=== PATIENT | female | born 1935 | race Caucasian/White ===

== ENCOUNTER 2017-06-16 16:17 | Inpatient (IN) | payer MEDICARE ==
[2017-06-16 16:40] LABS: Actual Bicarbonate (HCO3a) 36.6 mEq/L (22-26); Base Excess (BEa) 4.6 mEq/L (0 (+/-) 2.5); O2 Tension (PaO2) 98.1 mmHg (80.0-100.0); pH, Arterial 7.15 (7.35-7.45)
[2017-06-16 16:41] LABS: Analyzer IN Cardio ER; Calcium, Ionized 1.3 mmol/L (1.12-1.30); Carboxyhemoglobin (COHb) 2.5 gm% (0.0-3.0); Hemoglobin (Hb) 12.1 g/dL (12.0-16.0); Potassium - ABG Lab 5.3 mmol/L (3.70-5.30); Puncture Site LBA
[2017-06-16] MEDS ORDERED: Propofol 1,000 MG/100 ML VIAL IV ONE (16:57)
[2017-06-16] MEDS ORDERED: Sodium Bicarb 50 MEQ/50 ML Abboject 8.4% SYRINGE ONE (17:04)
[2017-06-16] MEDS ORDERED: Furosemide 40 MG/4 ML VIAL ONE (17:04)
[2017-06-16] MEDS ORDERED: Aspirin 300 MG Suppository ONE ×2 (17:21→17:34)
[2017-06-16 17:25] LABS: #Eosinphils 0.1 thou/uL (0.0-0.7); #Lymphocytes 0.7 thou/uL (1.20-3.40); #Monocytes 0.7 thou/uL (0.11-0.59); #Neutrophils 6.8 thou/uL (1.40-6.50); %Basophils 0.5 % (0.0-1.0); %Eosinophils 1.3 % (0.0-10.0); %Lymphocytes 7.8 % (21.0-51.0); %Monocytes 8.1 % (0.0-10.0); %Neutrophils 82.3 % (42.0-75.0); Hemoglobin 12.1 g/dL (12.0-16.0); Mean Corpuscular HGB CONC 28.4 g/dL (32.0-36.0); Mean Corpuscular Hemoglobin 25.2 pg (27.0-31.0); Mean Corpuscular Volume 88.9 fl (81.0-99.0); Mean Platelet Volume 7.6 fL (7.4-10.4); Platelet Count 229 thou/uL (130-400); RBC Distribution Width 15.3 % (11.5-14.5); Red Blood Cell (RBC) Count 4.79 mill/uL (4.20-5.40); White Blood Cell (WBC) Count 8.3 thou/uL (4.8-10.8)
[2017-06-16 17:27] LABS: CO2 Tension 35.5 mmHg (35.0-45.0); O2 Tension (PaO2) 98.4 mmHg (80.0-100.0); pH, Arterial 7.51 (7.35-7.45)
[2017-06-16 17:28] LABS: Actual Bicarbonate (HCO3a) 27.7 mEq/L (22-26); Analyzer IN Cardio ER; Base Excess (BEa) 4.7 mEq/L (0 (+/-) 2.5); Calcium, Ionized 1.2 mmol/L (1.12-1.30); Carboxyhemoglobin (COHb) 2.4 gm% (0.0-3.0); Hemoglobin (Hb) 12.1 g/dL (12.0-16.0); Potassium - ABG Lab 5.4 mmol/L (3.70-5.30); Puncture Site RBA
[2017-06-16 17:29] LABS: ALV-art Gradient 142.425 (0-20)
[2017-06-16 17:31] LABS: Bilirubin Small (Negative); Blood, Urine Moderate (Negative); Clarity CLOUDY (Clear); Glucose, Urine (Dipstick) Negative (Negative); Leukocyte Trace (Negative); Nitrite Negative (Negative); Protein, Urine (Dipstick) 100 mg/dL (Neg-Trace); Specific Gravity, Urine 1.017 (1.002-1.036)
[2017-06-16 17:34] LABS: Bacteria/HPF None Seen HPF (None Seen); RBC/HPF 21-50 HPF (0-3)
[2017-06-16 17:35] LABS: Pathc Cast-AUWi Flag 21.95 (0-2.49)
[2017-06-16 17:41] LABS: Anisocytosis SLIGHT = 6-15 cells (100X) (0-5/hpf); MDiff Complete? YES; PLT Morphology Comment Appears Adequate; Polychromasia SLIGHT = 2-3 cells (100X) (0-2/hpf)
[2017-06-16 17:46] LABS: Squamous Epithelial 0-3 HPF (0-3); Transitional Epithelial 0-3 HPF (0-3)
[2017-06-16 17:46] LABS: ALT (SGPT) 23 U/L (8-55); AST (SGOT) 32 U/L (5-34); Albumin 3.5 g/dL (3.4-4.8); Alkaline Phosphatase 148 U/L (40-150); Anion Gap 18 mmol/L (10-20); BUN (Urea Nitrogen) 49 mg/dL (9.8-20.1); Bilirubin, Total 0.9 mg/dL (0.2-1.2); Calc. Creatinine Clearance 0 mL/min (70-130); Calcium 9.5 mg/dL (7.8-10.44); Carbon Dioxide 26 mmol/L (23-31); Chloride 95 mmol/L (98-107); Estimated GFR-MDRD 31; Globulin 3.7 g/dL (2.4-3.5); Glucose 80 mg/dL (83-110); Lipase 12 U/L (8-78); Potassium 5.4 mmol/L (3.5-5.1); Protein, Total 7.2 g/dL (6.0-8.3); Sodium 134 mmol/L (136-145)
[2017-06-16 17:51] LABS: Troponin I 0.044 ng/mL (< 0.028)
--- NOTE | 2017-06-16 18:07 | RAD ---
PORTABLE AP CHEST X-RAY: 06/16/17 HISTORY: Dyspnea, CHF exacerbation. History of atrial fibrillation and CHF. Bilateral lower extremity edema. D ecreased oxygen saturation. COMPARISON: 06/16/17. FINDINGS: The patient is rotated which accentuates the cardiac silhouette and mediastinal structures. However, the cardiac silhouette does appear enlarged. Endotracheal tube is noted in place with the tip overlying the T4 vertebral body and above the level of the leni. Nasogastric tube is noted in place which courses into the upper abdomen. The tip of wh ich is not imaged. There is suboptimal evaluation of the right lung base due to prominent patient rotation and the enlar ged cardiac silhouette. However, there is question of increased density at the right lung base. The f indings could be related to pneumonia, pleural effusion, or atelectasis. Followup PA and lateral ches t x-ray is recommended. The increased density suggested on the recent exam that came from [facility] also obtained on 06/16/17 is not visualized on this exam, some of which is likely related to p ositioning and overlying soft tissue density on the prior study. No other interval change. IMPRESSION: 1. Suboptimal examination due to patient rotation which limits evaluation of the right lung base . However, as noted on the prior exam, there does appear to be increased density at the right lung ba se which could again be related to pleural fluid, pneumonia, aspiration pneumonitis and/or atelectasi s. Followup evaluation is recommended. 2. Endotracheal tube and nasogastric tube noted in place. POS: [facility]
[2017-06-16] MEDS ORDERED: DISCONTINUE PREVIOUS NARCOTIC PAIN MEDICATIONS AND BENZODIAZEPINES FS SCH (19:59)
[2017-06-16] MEDS ORDERED: Fentanyl BOLUS 250 ML IVPB PRN (19:59)
[2017-06-16] MEDS ORDERED: Propofol 1,000 MG/100 ML VIAL IV PRN (19:59)
[2017-06-16] MEDS ORDERED: Propofol BOLUS 1,000 MG/100 ML VIAL IV PRN (19:59)
[2017-06-16] MEDS ORDERED: Morphine 4 MG/ML VIAL SLOW IVP PRN (19:59)
[2017-06-16] MEDS ORDERED: Ondansetron ODT 4 MG TAB PO PRN (20:26)
[2017-06-16] MEDS ORDERED: Ventilator Sedation Protocol 1 EACH FS SCH (20:26)
[2017-06-16] MEDS ORDERED: Furosemide 40 MG/4 ML VIAL SLOW IVP SCH ×2 (20:26→20:45)
[2017-06-16] MEDS ORDERED: Acetaminophen 650 MG Suppository PR PRN (20:26)
[2017-06-16] MEDS ORDERED: Lorazepam 2 MG/ML VIAL SLOW IVP PRN (20:26)
[2017-06-16] MEDS ORDERED: cloNIDine 0.1 MG TAB PO PRN (20:26)
[2017-06-16] MEDS ORDERED: CCU Electrolyte Replacement 1 EACH FS SCH (20:26)
[2017-06-16] MEDS ORDERED: hydrALAZINE 20 MG/ML VIAL SLOW IVP PRN (20:26)
[2017-06-16] MEDS ORDERED: Ondansetron PF 4 MG/2 ML Vial IVP PRN (20:26)
[2017-06-16] MEDS: fentaNYL Citrate/PF 2,000 MCG in Sodium Chloride 0.9% 60 ML IV SCH (20:32)
[2017-06-16] MEDS ORDERED: Potassium Phosphate 15 MMOL in Sodium Chloride 0.9% 250 ML 250 ML IV PRN (20:43)
[2017-06-16] MEDS ORDERED: Magnesium Oxide 400 MG TAB PO PRN ×2 (20:43)
[2017-06-16] MEDS ORDERED: CCU ELECTROLYTE REPLACEMENT PROTOCOL FS PRN (20:43)
[2017-06-16] MEDS ORDERED: Magnesium 2 GM/NS 0.9% 100 ML 2 GM in Premix Bag 1 BAG IVPB PRN (20:43)
[2017-06-16] MEDS ORDERED: Potassium Phosphate 9 MMOL in Sodium Chloride 0.9% 100 ML IVPB PRN (20:43)
[2017-06-16] MEDS ORDERED: Potassium Chloride 20 MEQ TAB PO PRN (20:43)
[2017-06-16] MEDS ORDERED: Potassium Chloride 40 MEQ in Premix Bag 1 BAG IVPB PRN (20:43)
[2017-06-16] MEDS ORDERED: Potassium Phosphate 12 MMOL in Sodium Chloride 0.9% 250 ML 250 ML IV PRN (20:43)
[2017-06-16] MEDS ORDERED: Potassium Chloride 40 MEQ in Sodium Chloride 0.9% 250 ML 250 ML IVPB PRN (20:43)
[2017-06-16] MEDS: Vancomycin HCl 1 GM in Premix Bag 1 BAG IVPB SCH (21:01)
--- NOTE | 2017-06-16 21:55 | HP ---
DATE OF ADMISSION: 06/16/2017 PRIMARY CARE PROVIDER: Faith Perez M.D. CHIEF COMPLAINT: Shortness of breath and altered mentation. HISTORY OF PRESENT ILLNESS: This is an 82-year-old female who was initially admitted to [facility] after presenting with shortness of breath, fatigue, and CHF exacerbation on . The patient apparently was admitted under Dr. Perez's service and treated for congestiv e heart failure. The patient received IV Lasix 40 mg q.12 hours and was placed on a fluid restrictio n of 1500 mL daily. According to the patient's family members at the bedside, the patient became inc reasingly confused, somnolent, and was unable to follow any specific commands. The daughter reports increasing lower extremity swelling and a 40-pound weight gain over approximate 3-week history leadin g up to the admission to [facility] on 06/13/2017. The daughter reports the patient does not take care of herself, but has been caring for her ailing spouse over the same time frame. The patient reji arently had been taking Lasix twice a day up to 3 times a day with no specific improvement in swellin g and increasing fatigue, decreased exercise and activity tolerance with the need to take multiple br eaks while doing chores and assisting her spouse. The patient's history is significant for atrial fi brillation as well as prior congestive heart failure diagnosis with last 2D transthoracic echocardiog igor in 08/2016 showing ejection fraction of 50%-55% with suspected diastolic dysfunction. The family is suspicious the patient may have been noncompliant with her medication and dietary regimen. The h istory is obtained exclusively after review of electronic medical record in the emergency room, [facility] with the ER attending, as well as family members including the patient's daughter at the [facility]. In the emergency room, the patient apparently became increasingly somnolent and hypoxic, requiri ng mechanical ventilation after ABG showed a pH of 7.1 and a pCO2 of 108. The patient was placed on SIMV, given oxygen supplementation with repeat pH after mechanical ventilation of 7.51. The patient also received multiple medications in the emergency room including sodium bicarbonate, fentanyl, prop ofol, aspirin, Lasix, etomidate, and rocuronium. No specific history of fever, exposure history, rec ent fall, injury, or head trauma. The patient has been referred to the Hospitalist Service for [facility] er evaluation and admission. PAST MEDICAL HISTORY: 1. Hypertension. 2. Chronic atrial fibrillation, on anticoagulation with Eliquis. 3. Congestive heart failure with preserved ejection fraction of 50%-55%, questionable diastolic dysf unction. 4. History of asthma. 5. Generalized anxiety. PAST SURGICAL HISTORY: 1. Status post hysterectomy. 2. Status post cataract removal. CURRENT MEDICATIONS: Based on previous electronic medical record, 1. Klonopin 0.5 mg p.o. b.i.d. 2. Lasix 40 mg p.o. b.i.d. 3. Lidoderm patch 1 patch transdermally daily. 4. Metoprolol 50 mg p.o. b.i.d. 5. Tramadol 50 mg p.o. b.i.d. ALLERGIES: To HYDROCODONE. FAMILY HISTORY: Positive for hypertension. SOCIAL HISTORY: The patient resides in [place], [place]. No current alcohol, tobacco, or illicit drug use. Cares for her ailing spouse. Ambulates with the use of a rolling walker. REVIEW OF SYSTEMS: Unobtainable as the patient on current mechanical ventilation. PHYSICAL EXAMINATION: VITAL SIGNS: On admission, blood pressure 122/80, pulse 111, respiratory rate 24, temperature 97.7 d egrees Fahrenheit, O2 saturation 98% on 3 liters per minute by nasal cannula. GENERAL APPEARANCE: This is an 82-year-old female, sedate, on current mechanical ventilati on with family at bedside. HEENT: Pupils are equal, round, and reactive to light and accommodation. Extraocular muscles are in tact. No scleral icterus, no conjunctival injection. Nares patent. OP is clear. ET tube in place and secured appropriately. NECK: Supple, no cervical adenopathy, no thyromegaly, no carotid bruits, no JVD appreciated. No men ingeal signs appreciated. CHEST: Diminished breath sounds in the bases with scattered crackles. Mild expiratory wheezing in t he left upper lung field. CARDIOVASCULAR: S1, S2 with distant heart sounds. Irregular rate and rhythm noted. No audible murm ur. ABDOMEN: Obese, soft, nondistended. Bowel sounds are positive in all four quadrants. No palpable m ass; however, landmarks are difficult to palpate due to the patient's body habitus. EXTREMITIES: Pitting edema to the proximal shins bilaterally. Pulses are palpable distally at the d orsalis pedis, posterior tibial, and popliteal arteries bilaterally. Capillary refill is less than 2 seconds. NEUROLOGIC: Sedate, on current mechanical ventilation, and propofol infusion. GENITOURINARY: Umanzor catheter in place with brock urine. PERTINENT LABORATORY AND X-RAY FINDINGS: Sodium 134, potassium 5.4, chloride 95, CO2 of 26, anion ga p of 18, BUN 49, creatinine 1.58 with estimated GFR of 31, glucose 80, and calcium 9.5. LFTs within normal limits. Troponin I 0.044. BNP 1215, previously noted 946 on 06/15/2017. CBC showed a white blood cell count of 8.3, hemoglobin 12, hematocrit 43, platelet count 229 with 82% neutrophils. ABG on admission 06/16/2017 at 1637 showed pH 7.15, pCO2 of 108, pO2 of 98, bicarbonate 37, O2 saturation 96%. Urinalysis dated 06/16/2017 showed positive protein, moderate blood with trace leukocyte gerald ase, 21-50 rbc's per high-power field, and 11-20 wbc's per high-power field. CT of the brain without contrast dated 06/16/2017 showed no acute intracranial process. Portable chest x-ray dated 06/17/19 18 showed suboptimal exam due to the patient rotation. Questionable right lower lung zone density. Endotracheal and nasogastric tube in place. EKG dated 06/16/2017 showed atrial fibrillation with rat es in the [address]-T wave changes noted. ASSESSMENT AND PLAN: 1. Acute hypercapnic respiratory failure. The patient will be admitted to the Critical Care Unit. We will continue mechanical ventilation with synchronized intermittent mechanical ventilation. Kenyatta nue FiO2 of 60% with PEEP of 5, rate of 25, and pressure support of 10. We will consult Pulmonary Cr itical Care Service for further ventilatory management. Suspect multifactorial respiratory failure i ncluding volume overload and pulmonary edema, as well as potential infectious process. See managemen t as outlined below. 2. Acute diastolic congestive heart failure exacerbation. Suspected given a prior history. Continu e Lasix 40 mg IV b.i.d. Check 2D transthoracic echocardiogram for accurate ejection fraction. 3. Acute encephalopathy. Suspect multifactorial including hypercapnia. We will continue supportive management as outlined previously. Assess mental status functioning when the patient extubated. 4. Acute kidney injury. We will avoid nephrotoxic agents and contrast media. Monitor renal functio n. Limit contrast media exposure. Continue Umanzor catheter for accurate inputs and outputs. 5. Hyperkalemia. Continue Lasix 40 mg IV q.12 hours. Serial potassium monitoring. 6. Chronic atrial fibrillation with variable rate. We will continue telemetry monitoring. Resume m etoprolol 50 mg p.o. b.i.d. Consider Cardizem infusion if rapid ventricular response is sustained. 7. Prophylaxis. Sequential compression devices while in bed. Protonix 40 mg IV q. 24 hours. PT ev aluation when extubated. Critical Care Unit sedation protocol. 8. Code status, FULL, confirmed with the patient's daughter. Previously DO NOT RESUSCITATE; however , this was revoked according to family members at the time of evaluation in the emergency room and pr ior to intubation. Surrogate medical decision maker is the patient's daughter. Total critical care time is 50 minutes.
[2017-06-16] MEDS: cefTRIAXone\\ROCEPHIN 2 GM in Sodium Chloride 0.9% 100 ML IVPB SCH (22:08)
[2017-06-16 22:28] LABS: Troponin I 0.041 ng/mL (< 0.028)
[2017-06-17 01:22] LABS: Troponin I 0.042 ng/mL (< 0.028)
[2017-06-17 05:31] LABS: ALT (SGPT) 21 U/L (8-55); AST (SGOT) 28 U/L (5-34); Alkaline Phosphatase 123 U/L (40-150); Anion Gap 18 mmol/L (10-20); BUN (Urea Nitrogen) 55 mg/dL (9.8-20.1); Band 3 % (5-11); Bilirubin, Total 1.2 mg/dL (0.2-1.2); Calc. Creatinine Clearance 52 mL/min (70-130); Calcium 9.1 mg/dL (7.8-10.44); Carbon Dioxide 28 mmol/L (23-31); Chloride 96 mmol/L (98-107); Estimated GFR-MDRD 34; Glucose 68 mg/dL (83-110); Hemoglobin 10.7 g/dL (12.0-16.0); Hypochromia SLIGHT = 6-15 cells (100X) (0-5/hpf); Lymphocytes 5 % (21-51); MDiff Complete? YES; Mean Corpuscular HGB CONC 30.1 g/dL (32.0-36.0); Mean Corpuscular Hemoglobin 25.5 pg (27.0-31.0); Mean Corpuscular Volume 84.9 fl (81.0-99.0); Mean Platelet Volume 8.4 fL (7.4-10.4); Monocytes 10 % (0-10); Neutrophil 82 % (42-75); PLT Morphology Comment Appears Adequate; Platelet Count 237 thou/uL (130-400); Potassium 4.3 mmol/L (3.5-5.1); RBC Distribution Width 15.6 % (11.5-14.5); Red Blood Cell (RBC) Count 4.18 mill/uL (4.20-5.40); Sodium 138 mmol/L (136-145); White Blood Cell (WBC) Count 8.4 thou/uL (4.8-10.8)
[2017-06-17 05:33] LABS: Troponin I 0.058 ng/mL (< 0.028)
[2017-06-17] MEDS: Furosemide 40 MG/4 ML VIAL SLOW IVP SCH ×2 (05:38→13:17)
[2017-06-17 07:10] LABS: CO2 Tension 26.4 mmHg (35.0-45.0); O2 Tension (PaO2) 73.3 mmHg (80.0-100.0); pH, Arterial 7.65 (7.35-7.45)
[2017-06-17 07:11] LABS: Actual Bicarbonate (HCO3a) 28.2 mEq/L (22-26); Base Excess (BEa) 7.7 mEq/L (0 (+/-) 2.5)
[2017-06-17 07:22] LABS: Hematocrit-ABG 38.3 % (36.0-47.0)
[2017-06-17 07:23] LABS: Calcium, Ionized 1.3 mmol/L (1.12-1.30); Carboxyhemoglobin (COHb) 1.8 gm% (0.0-3.0); Hemoglobin (Hb) 10.8 g/dL (12.0-16.0); Puncture Site RBA
[2017-06-17] MEDS: Vancomycin HCl 1 GM in Premix Bag 1 BAG IVPB SCH ×2 (08:13→21:10)
[2017-06-17] MEDS: Pantoprazole 40 MG VIAL IVP SCH (08:15)
[2017-06-17] MEDS: Diltiazem 125 MG in Sodium Chloride 0.9% 100 ML IVPB SCH ×2 (08:40→20:04)
[2017-06-17] MEDS ORDERED: Aspirin 81 mg Enteric Coated Tablet PER TUBE SCH (09:00)
--- NOTE | 2017-06-17 09:46 | RAD ---
SEMIUPRIGHT FRONTAL CHEST RADIOGRAPH: Date: 06/17/17 COMPARISON: 06/16/17. HISTORY: Intubated CCU patient with respiratory failure. FINDINGS: Stable endotracheal tube and nasogastric tube. Dense opacity in the right perihilar region and right lung base suggests nonspecific consolidation/collapse and possible right pleural fluid. There is also pleural and parenchymal opacity in the left base obscuring the left hemidiaphragm and left heart bor nikky. IMPRESSION: No significant interval change. POS: [facility]
--- NOTE | 2017-06-17 10:40 | CON ---
DATE OF CONSULTATION: 06/17/2017 CONSULTING PHYSICIAN: Dr. Ramirez. REASON FOR CONSULTATION: Acute respiratory failure. HISTORY OF PRESENT ILLNESS: This is an 82-year-old female who was apparently an inpatient at [facility]. She has been hospitalized for CHF exacerbation on 06/13. There is a history of 40 pound weight gain over the last 3 weeks. I am not completely sure what happened over at [place]. She was sent over here for increased somnolence and hypoxemia. She was intubated for hypercapnic respiratory failure and placed on mechanical ventilation. PAST MEDICAL HISTORY: 1. Hypertension. 2. Chronic atrial fibrillation. 3. Chronically anticoagulated for atrial fibrillation. 4. Congestive heart failure, which is diastolic. 5. History of asthma. 6. Anxiety. PAST SURGICAL HISTORY: Hysterectomy and cataract surgery. MEDICATIONS PRIOR TO ADMISSION: Klonopin, Lasix, Lidoderm, metoprolol, tramadol. ALLERGIES: HYDROCODONE. FAMILY MEDICAL HISTORY: Remarkable for hypertension. SOCIAL HISTORY: Lives in [place]. Apparently, she does not have any history of alcohol, tobacco or illicit drug use. REVIEW OF SYSTEMS: Unobtainable as the patient is in mechanical ventilation. PHYSICAL EXAMINATION: VITAL SIGNS: Temperature 100.0, pulse 124, blood pressure 96/52. She is currently on a propofol drip 10 mcg per hour, fentanyl drip at 75 mcg per hour. Total intake since yesterday 499, output 1215. GENERAL: She is somnolent, but receiving intravenous sedation. HEENT: Pupils are reactive. Sclerae anicteric. Oropharynx clear. NECK: Without adenopathy, JVD, or bruits. LUNGS: Diminished breath sounds in the bases. CARDIAC: S1, S2 irregularly irregular and tachycardic. ABDOMEN: Soft, obese, nontender, nondistended. EXTREMITIES: No clubbing, cyanosis. She has 4+ edema throughout her legs. LABORATORY DATA: White blood cell count 8.4, hemoglobin 10, hematocrit 35.4, platelet count 237. ABG, pH 7.65, pCO2 of 26, pO2 of 72 that was on SIMV rate 25, tidal volume 500, PEEP 5, pressure support 10, FIO2 70%. Sodium 130, potassium 4.3, chloride 96, CO2 28, BUN 55, creatinine 1.5, glucose 68. BNP 767. X-RAY FINDINGS: Chest x-ray shows bilateral infiltrates, probably a right effusion. The film is tilted to the right. ASSESSMENT: 1. Congestive heart failure. 2. Acute hypoxic and hypercapnic respiratory failure requiring mechanical ventilation. 3. History of hypertension. 4. Gram positive rods on cultures done over in [place]. PLAN: 1. She is not weanable at this time. I have adjusted her mechanical ventilation rate for her developing respiratory alkalosis. 2. Continue diuresis. 3. I will speak with the family when they arrive. 70 minutes time spent on consultation. Of that time, >50% was spent with the patient and/or on the patients unit [facility]
[2017-06-17] MEDS: Lorazepam 2 MG/ML VIAL SLOW IVP PRN ×2 (13:17→17:53)
[2017-06-17] MEDS ORDERED: Digoxin 0.5 MG/2 ML AMP SLOW IVP SCH ×2 (14:00→17:45)
[2017-06-17] MEDS ORDERED: Furosemide 40 MG/4 ML VIAL SLOW IVP SCH (20:00)
[2017-06-17] MEDS ORDERED: Enoxaparin Sodium 40 MG/0.4 ML SYRINGE SC SCH (21:00)
--- NOTE | 2017-06-17 22:10 | CON ---
DATE OF CONSULTATION: 06/17/2017 PRIMARY STEEL POURER: Frederick Esparza M.D. REASON FOR CONSULTATION: Atrial fibrillation with a rapid rate; congestive heart failure, diastolic. HISTORY OF PRESENT ILLNESS: Ms. Ambrose is an 82-year-old woman with history of diastolic heart failure and atrial fibrillation. She was brought to the hospital in [place], where she was found to stone ve positive blood cultures and had respiratory failure, requiring intubation. She is not here intuba javed on the ventilator. PAST MEDICAL HISTORY: 1. Diastolic heart failure. 2. Atrial fibrillation. 3. History of asthma. PAST SURGICAL HISTORY: Hysterectomy and cataract surgery. MEDICATIONS PRIOR TO ADMISSION: Metoprolol, tramadol, Lasix, Klonopin and also anticoagulant. ALLERGIES: HYDROCODONE. REVIEW OF SYSTEMS: Unobtainable. She is on the ventilator. PHYSICAL EXAMINATION: GENERAL: This is an elderly woman, sedated, appears comfortable on the ventilator. VITAL SIGNS: Blood pressure 117/72, pulse 110-120 despite 12 mg of Cardizem per hour and a single do se of digoxin. NECK: Neck veins are normal. Carotid normal upstrokes. LUNGS: Did not hear any wheezing, rales or rhonchi. CARDIAC: Irregularly irregular, somewhat distant. No murmur, rub or gallop. ABDOMEN: Obese, nontender, no hepatosplenomegaly. EXTREMITIES: Warm and dry. No clubbing or cyanosis. There is moderate edema. SKIN: Warm and dry. PSYCHIATRIC: She is sedated. PERTINENT LABORATORY AND X-RAY FINDINGS: The BNP is elevated at 762, creatinine is 1.49, and troponi n 0.058. Blood gas yesterday pH was 7.15 with pCO2 of 108, most recent blood gas pH of 7.65, pCO2 of 26.4 that was this morning. Echocardiogram is technically difficult, but grossly normal left ventri cular function. ASSESSMENT: 1. Diastolic heart failure with worsening. 2. The patient appears to have a gram-negative sepsis, being treated. 3. Respiratory failure, combination of diastolic heart failure and sepsis. PLAN: 1. Continue supportive care. 2. We will continue Cardizem. 3. Give another dose of digoxin. 4. We will begin anticoagulation started relatively low dose and workup as needed.
[2017-06-17] MEDS: cefTRIAXone\\ROCEPHIN 2 GM in Sodium Chloride 0.9% 100 ML IVPB SCH (22:30)
[2017-06-18] MEDS: fentaNYL Citrate/PF 2,000 MCG in Sodium Chloride 0.9% 60 ML IV SCH (03:33)
[2017-06-18] MEDS: Furosemide 40 MG/4 ML VIAL SLOW IVP SCH ×2 (05:27→13:25)
[2017-06-18] MEDS: Diltiazem 125 MG in Sodium Chloride 0.9% 100 ML IVPB SCH ×2 (05:27→16:12)
[2017-06-18 05:28] LABS: #Eosinphils 0.1 thou/uL (0.0-0.7); #Lymphocytes 0.9 thou/uL (1.20-3.40); #Monocytes 0.9 thou/uL (0.11-0.59); #Neutrophils 4.9 thou/uL (1.40-6.50); %Basophils 0.7 % (0.0-1.0); %Eosinophils 0.8 % (0.0-10.0); %Lymphocytes 13.8 % (21.0-51.0); %Monocytes 12.6 % (0.0-10.0); %Neutrophils 72.1 % (42.0-75.0); Hemoglobin 10.5 g/dL (12.0-16.0); Mean Corpuscular HGB CONC 30.6 g/dL (32.0-36.0); Mean Corpuscular Hemoglobin 25.6 pg (27.0-31.0); Mean Corpuscular Volume 83.6 fl (81.0-99.0); Mean Platelet Volume 7.9 fL (7.4-10.4); Platelet Count 221 thou/uL (130-400); RBC Distribution Width 15.6 % (11.5-14.5); Red Blood Cell (RBC) Count 4.09 mill/uL (4.20-5.40); White Blood Cell (WBC) Count 6.8 thou/uL (4.8-10.8)
[2017-06-18 05:37] LABS: Anion Gap 14 mmol/L (10-20); BUN (Urea Nitrogen) 53 mg/dL (9.8-20.1); Calc. Creatinine Clearance 64 mL/min (70-130); Calcium 8.8 mg/dL (7.8-10.44); Carbon Dioxide 34 mmol/L (23-31); Chloride 97 mmol/L (98-107); Estimated GFR-MDRD 43; Glucose 80 mg/dL (83-110); Potassium 3.5 mmol/L (3.5-5.1); Sodium 141 mmol/L (136-145)
--- NOTE | 2017-06-18 07:16 | PDOC.PN ---
- Subjective Encounter Start Date: 06/17/17 Encounter Start Time: 10:45 Subjective: pt intubated - Objective Resuscitation Status: Resuscitation Status FULL:Full Resuscitation Vital Signs & Weight: Vital Signs (12 hours) Temp Pulse Resp BP Pulse Ox 06/18/17 06:00 12 06/18/17 04:00 98.8 F 12 06/18/17 02:33 98 107/58 L 06/18/17 02:00 12 06/18/17 00:00 98.3 F 12 06/17/17 22:27 85 107/56 L 06/17/17 22:00 12 06/17/17 20:00 98 F 106 H 12 100 Weight Weight 3.87 oz Most Recent Monitor Data Heart Rate from ECG 104 NIBP 118/61 NIBP BP-Mean 81 Respiration from ECG 16 SpO2 100 I&O: 06/17/17 06/18/17 06/19/17 06:59 06:59 06:59 Intake Total 499 1066.4 Output Total 1215 2325 Balance -716 -1258.6 Result Diagrams: 06/18/17 04:05 06/18/17 04:05 Additional Labs: Accuchecks 06/17/17 14:12 POC Glucose 92 Phys Exam - Physical Examination Neck: no nodes, no JVD, supple, full ROM Respiratory: no wheezing, no rales, no rhonchi, wheezing present, clear to auscultation bilateral Cardiovascular: irregular tachycardia Gastrointestinal: soft, positive bowel sounds Musculoskeletal: no edema, pulses present, edema present Dx/Plan - Plan 1) Acute hypoxic and hypercapnic resp failure 2) blood cx one bottle positive for gram postive rods 3) Acute diastolic CHF 4) Afib with rvr 5) ruby plan: Pt currenlty intubated, on abx for now. Pt is on cardizam and cardiology has been consulted. Per notes pt was initially admitted at another hosptial and was transferred here due to acute confusion. UA appears normal. CXR unable to visualize lung bases, fluid vs consolidation. will monitor * . Review of Systems - Review of Systems Other: unable to participate - Medications/Allergies Allergies/Adverse Reactions: Allergies Allergy/AdvReac Type Severity Reaction Status Date / Time hydrocodone AdvReac Verified 06/16/17 21:52 Medications: Current Medications Acetaminophen (Tylenol) 650 mg WI Q4H PRN PRN Reason: Headache/Fever or Mild Pain Aspirin (Aspirin Chewable) 81 mg PER TUBE DAILY [facility] Last Admin: 06/17/17 08:15 Dose: 81 mg Clonidine (Catapres) 0.1 mg PO Q4H PRN PRN Reason: Systolic BP > 180 Enoxaparin Sodium (Lovenox) 40 mg SC 0900,2100 [facility] Last Admin: 06/17/17 21:10 Dose: 40 mg Furosemide (Lasix) 40 mg SLOW IVP 0600,1400 [facility] Last Admin: 06/18/17 05:27 Dose: 40 mg Hydralazine HCl (Apresoline) 10 mg SLOW IVP Q4H PRN PRN Reason: Systolic BP > 180 Fentanyl Citrate 2,000 mcg/ (Sodium Chloride) 100 mls @ 0 mls/hr IV INF [facility]; Per Protocol PRN Reason: Protocol Stop: 07/16/17 19:59 Last Admin: 06/18/17 03:33 Dose: 100 mls Fentanyl Citrate (Fentanyl Bolus) 250 mls @ 0 mls/hr IVPB PRN PRN; As Directed PRN Reason: Breakthrough pain/agitation Stop: 07/16/17 19:59 Ceftriaxone Sodium 2 gm/ (Sodium Chloride) 100 mls @ 200 mls/hr IVPB Q24HR [facility] Last Admin: 06/17/17 22:30 Dose: 100 mls Vancomycin HCl 1 gm/ Device 200 mls @ 200 mls/hr IVPB Q12HR [facility] Last Admin: 06/17/17 21:10 Dose: 200 mls Potassium Chloride 40 meq/ (Sodium Chloride) 270 mls @ 135 mls/hr IVPB ASDIR PRN PRN Reason: FOR SERUM K+ 2.5 - 3.5 Potassium Chloride 40 meq/ (Device) 100 mls @ 50 mls/hr IVPB ASDIR PRN PRN Reason: FOR SERUM K+ 2.5 - 3.5 Magnesium Sulfate 1 gm/ Sodium (Chloride) 102 mls @ 102 mls/hr IV PRN PRN PRN Reason: MAG LEVEL 1.4 - 2.0 Magnesium Sulfate 2 gm/ Device 100 mls @ 100 mls/hr IVPB ASDIR PRN PRN Reason: MAGNESIUM < 1.4 Potassium Phosphate 9 mmol/ (Sodium Chloride) 103 mls @ 25.75 mls/hr IVPB ASDIR PRN PRN Reason: Phosphate 1.0-1.8 Potassium Phosphate 12 mmol/ (Sodium Chloride) 254 mls @ 63.5 mls/hr IV ASDIR PRN PRN Reason: Serum phosphate 0.5-0.9 Potassium Phosphate 15 mmol/ (Sodium Chloride) 255 mls @ 63.75 mls/hr IV ASDIR PRN PRN Reason: Serum Phos < 0.5 Diltiazem HCl 125 mg/ Sodium (Chloride) 125 mls @ 5 mls/hr IVPB INF [facility]; 5 MG/ HR PRN Reason: Protocol Last Admin: 06/18/17 05:27 Dose: 125 mls Lorazepam (Ativan) 2 mg SLOW IVP Q1H PRN PRN Reason: Breakthrough agitation Stop: 07/16/17 19:59 Last Admin: 06/17/17 17:53 Dose: 2 mg Lorazepam (Ativan) 1 mg SLOW IVP Q4H PRN PRN Reason: Anxiety/Agitation Magnesium Oxide (Magnesium Oxide) 400 mg PO BIDPRN PRN PRN Reason: FOR SERUM MAG 1.4 - 2.0 Magnesium Oxide (Magnesium Oxide) 800 mg PO PRN PRN PRN Reason: FOR SERUM MAG < 1.4 Miscellaneous Medication (Phos-Nak) 1 pkt PO TIDPRN PRN PRN Reason: FOR PHOS LEVEL 1.0 - 1.8 Miscellaneous Medication (Phos-Nak) 2 pkt PO TIDPRN PRN PRN Reason: FOR PHOS LEVEL 0.5 - 1.0 Morphine Sulfate (Morphine) 2 mg SLOW IVP Q1H PRN PRN Reason: breakthrough pain/agitation Stop: 07/16/17 19:59 Ondansetron HCl (Zofran Odt) 4 mg PO Q6H PRN PRN Reason: Nausea/Vomiting Ondansetron HCl (Zofran) 4 mg IVP Q6H PRN PRN Reason: Nausea/Vomiting Pantoprazole Sodium (Protonix) 40 mg IVP DAILY [facility] Last Admin: 06/17/17 08:15 Dose: 40 mg Potassium Chloride (K-Dur) 40 meq PO ASDIR PRN PRN Reason: FOR SERUM K+ 2.5 - 3.5 Potassium Chloride (Klor-Con) 40 meq PER TUBE ASDIR PRN PRN Reason: FOR SERUM K+ 2.5-3.5 Propofol (Diprivan) 1,000 mg IV INF PRN; Protocol PRN Reason: TO ACHIEVE GOAL RASS Stop: 07/16/17 19:59 Last Admin: 06/17/17 05:44 Dose: 1,000 mg Propofol (Diprivan Bolus) 20 mg IV Q5MIN PRN PRN Reason: BREAKTHROUGH AGITATION Stop: 07/16/17 19:59 Sodium Chloride (Flush - Normal Saline) 10 ml IVF Q12HR [facility] Last Admin: 06/17/17 21:10 Dose: 10 ml Sodium Chloride (Flush - Normal Saline) 10 ml IVF PRN PRN PRN Reason: Saline Flush
[2017-06-18 07:54] LABS: Actual Bicarbonate (HCO3a) 35.9 mEq/L (22-26); Base Excess (BEa) 10.7 mEq/L (0 (+/-) 2.5); CO2 Tension 51.1 mmHg (35.0-45.0); Carboxyhemoglobin (COHb) 1.8 gm% (0.0-3.0); Hemoglobin (Hb) 10.6 g/dL (12.0-16.0); O2 Tension (PaO2) 79.9 mmHg (80.0-100.0); pH, Arterial 7.46 (7.35-7.45)
[2017-06-18 07:55] LABS: ALV-art Gradient 139.425 (0-20); Calcium, Ionized 1.2 mmol/L (1.12-1.30); Potassium - ABG Lab 3.2 mmol/L (3.70-5.30); Puncture Site RR
--- NOTE | 2017-06-18 08:07 | PRG ---
DATE OF SERVICE: 06/18/2017 This is 35 minutes critical care time. The patient is very slow to awaken and is not following commands for me specifically. She will withd raw when stimulated. PHYSICAL EXAMINATION: VITAL SIGNS: Temperature 98.8 with no fever overnight, pulse 104, blood pressure 118/61. 24 hour in take 1066, output 2325. HEENT: Unremarkable. NECK: No JVD. LUNGS: Clear to auscultation. CARDIOVASCULAR: S1, S2 regular. ABDOMEN: Soft, nontender, nondistended. EXTREMITIES: No clubbing, cyanosis, trace ankle and pedal edema. LABORATORY DATA: White blood cell count 6.8, hematocrit 34.2, platelet count 221. Sodium 141, potas sium 3.5, chloride 97, CO2 34, BUN 53, creatinine 1.2, glucose 80. Chest x-ray is grossly rotated. ASSESSMENT: 1. Acute on chronic congestive heart failure. 2. Question of concurrent sepsis. PLAN: 1. Hold sedation to the greatest extent possible. 2. Follow up on today's blood gas. 3. Continue diuresis. 4. Start enteral tube feeds.
--- NOTE | 2017-06-18 08:12 | RAD ---
AP VIEW CHEST: HISTORY: Respiratory failure in an 82-year-old female. FINDINGS: AP view chest was obtained on 06/18/17. Comparison is made to a previous exam from 06/17/17. AP view chest demonstrates nasogastric and endotracheal tubes to be in place. There is a right-sided pleural effusion. Pulmonary vascular congestion is seen. There is also some blunting of the left c ostophrenic angles compatible with a small left-sided pleural effusion. IMPRESSION: Stable AP view chest with pleural effusion and pulmonary vascular congestion. Lines and tubes in goo d position. POS: [facility]
[2017-06-18 08:26] LABS: Vancomycin, Trough 21.6 ug/mL
[2017-06-18] MEDS: Enoxaparin Sodium 120 MG/0.8 ML SYRINGE SC SCH ×2 (08:33→20:50)
[2017-06-18] MEDS: Pantoprazole 40 MG VIAL IVP SCH (08:33)
[2017-06-18] MEDS: Vancomycin HCl 1 GM in Premix Bag 1 BAG IVPB SCH (08:34)
[2017-06-18] MEDS ORDERED: VANCOMYCIN IVPB PRN (13:44)
[2017-06-18] MEDS ORDERED: Digoxin 0.25 MG TAB PO SCH (13:45)
[2017-06-18] MEDS: Lorazepam 2 MG/ML VIAL SLOW IVP PRN (20:50)
[2017-06-18] MEDS: Metoprolol Tartrate 25 MG TAB PO SCH (20:51)
[2017-06-18] MEDS: cefTRIAXone\\ROCEPHIN 2 GM in Sodium Chloride 0.9% 100 ML IVPB SCH (23:14)
[2017-06-19 03:46] LABS: #Eosinphils 0.1 thou/uL (0.0-0.7); #Lymphocytes 0.8 thou/uL (1.20-3.40); #Monocytes 0.9 thou/uL (0.11-0.59); #Neutrophils 5.3 thou/uL (1.40-6.50); %Basophils 0.5 % (0.0-1.0); %Eosinophils 1.9 % (0.0-10.0); %Lymphocytes 11.6 % (21.0-51.0); %Monocytes 12.3 % (0.0-10.0); %Neutrophils 73.6 % (42.0-75.0); Hemoglobin 10.7 g/dL (12.0-16.0); Mean Corpuscular HGB CONC 31.2 g/dL (32.0-36.0); Mean Corpuscular Hemoglobin 26.2 pg (27.0-31.0); Mean Corpuscular Volume 84.2 fl (81.0-99.0); Mean Platelet Volume 7.4 fL (7.4-10.4); Platelet Count 217 thou/uL (130-400); RBC Distribution Width 15.7 % (11.5-14.5); White Blood Cell (WBC) Count 7.2 thou/uL (4.8-10.8)
[2017-06-19 04:03] LABS: BUN (Urea Nitrogen) 39 mg/dL (9.8-20.1); Calc. Creatinine Clearance 92 mL/min (70-130); Estimated GFR-MDRD 65; Glucose 111 mg/dL (83-110)
[2017-06-19 04:14] LABS: Anion Gap 11 mmol/L (10-20); Carbon Dioxide 38 mmol/L (23-31); Chloride 97 mmol/L (98-107); Potassium 3.2 mmol/L (3.5-5.1); Sodium 143 mmol/L (136-145)
[2017-06-19] MEDS: Furosemide 40 MG/4 ML VIAL SLOW IVP SCH ×2 (05:50→13:13)
[2017-06-19 07:22] LABS: Base Excess (BEa) 14.2 mEq/L (0 (+/-) 2.5); Calcium, Ionized 1.2 mmol/L (1.12-1.30); Hematocrit-ABG 36.7 % (36.0-47.0); Hemoglobin (Hb) 10.8 g/dL (12.0-16.0); O2 Tension (PaO2) 79.4 mmHg (80.0-100.0); Potassium - ABG Lab 3.4 mmol/L (3.70-5.30); Puncture Site RRA; pH, Arterial 7.46 (7.35-7.45)
--- NOTE | 2017-06-19 07:44 | PRG ---
DATE OF SERVICE: 06/19/2017 SUBJECTIVE: For the first time, Ms. Ambrose is awake this morning. She can follow some commands, but i s very, very weak. OBJECTIVE: VITAL SIGNS: On exam, her temperature is 98.5; pulse 97; blood pressure 124/72; O2 sat 96%; total in take for 24 hours 1230, output 4330; weight 233 pounds. HEENT: Unremarkable. NECK: No JVD. LUNGS: Clear at the apex, but crackles at the bases. CARDIOVASCULAR: S1 and S2 irregularly irregular, on a Cardizem drip. ABDOMEN: Soft and nontender. EXTREMITIES: No clubbing, cyanosis, or edema. LABORATORY DATA: White blood cell count 7.2, hematocrit 34.5, platelet count 217. ABG pending. Sod ium 143, potassium 3.2, chloride 97, CO2 of 38, BUN 39, creatinine 0.8, glucose 111. Chest x-ray partha ws some clearing except in the left base. ASSESSMENT: 1. Acute respiratory failure, requiring mechanical ventilation. 2. Possible concurrent sepsis. PLAN: She was placed on spontaneous breathing. She required a lot of pressure support. I do not th ink she could be extubated today unless her neuromuscular weakness improves today. Her cultures have been checked. There is nothing growing at 48 hours. Therefore, I think we should stop the vancomyc in. For the time being, we will continue the ceftriaxone. Plan to stop antibiotics after 5-7 days. I will reevaluate her later today for potential for extubation.
--- NOTE | 2017-06-19 08:06 | RAD ---
CHEST ONE VIEW: History: Respiratory failure. Follow up. Comparison: 06-18-17 FINDINGS: Cardiac silhouette is magnified and enlarged. Pulmonary vasculature remains engorged with patchy biba silar infiltrates and pleural fluid that are similar in appearance to the previous exam. Mediastinum is midline. Lines and tubes appear unchanged in position. gambling monitor leads overlie the chest. IMPRESSION: 1. Radiographic findings of CHF are stable compared to the previous exam. POS: [facility]
[2017-06-19] MEDS: Lorazepam 2 MG/ML VIAL SLOW IVP PRN (08:18)
[2017-06-19] MEDS: Digoxin 0.25 MG TAB PO SCH (08:24)
[2017-06-19] MEDS: Pantoprazole 40 MG VIAL IVP SCH (08:24)
[2017-06-19] MEDS: Metoprolol Tartrate 25 MG TAB PO SCH ×2 (08:24→23:29)
[2017-06-19] MEDS: Enoxaparin Sodium 120 MG/0.8 ML SYRINGE SC SCH ×2 (08:25→23:29)
[2017-06-19] MEDS ORDERED: Vancomycin HCl 1.5 GM in Sodium Chloride 0.9% 250 ML 300 ML IVPB SCH (09:00)
[2017-06-19] MEDS: Diltiazem 125 MG in Sodium Chloride 0.9% 100 ML IVPB SCH (09:32)
--- NOTE | 2017-06-19 09:52 | PDOC.PN ---
- Subjective Encounter Start Date: 06/18/17 Encounter Start Time: 10:30 Subjective: pt intubated - Objective Resuscitation Status: Resuscitation Status FULL:Full Resuscitation Vital Signs & Weight: Vital Signs (12 hours) Temp Pulse Resp BP 06/19/17 08:24 107 H 06/19/17 08:00 16 06/19/17 07:29 88 06/19/17 07:00 99.1 F 06/19/17 06:57 84 06/19/17 06:00 21 H 06/19/17 04:00 22 H 06/19/17 02:00 13 06/19/17 01:56 95 131/77 06/19/17 00:00 20 06/18/17 23:00 98.5 F 06/18/17 22:14 65 120/70 06/18/17 22:00 20 Weight Admit Weight 246 lb 14.884 oz Weight 233 lb 11.04 oz Most Recent Monitor Data Heart Rate from ECG 75 NIBP 116/67 NIBP BP-Mean 86 Respiration from ECG 16 SpO2 97 I&O: 06/18/17 06/19/17 06/20/17 06:59 06:59 06:59 Intake Total 1077.4 1230.0 Output Total 2325 4330 1300 Balance -1247.6 -3100.0 -1300 Result Diagrams: 06/19/17 03:30 06/19/17 03:30 Phys Exam - Physical Examination HEENT: PERRLA, moist MMs, sclera anicteric, TM's clear, oral pharynx no lesions , 2+ tonsils Respiratory: clear to auscultation bilateral Cardiovascular: irregular Gastrointestinal: soft, non-tender, no distention, positive bowel sounds Musculoskeletal: edema present Dx/Plan - Plan 1) Acute hypoxic and hypercapnic resp failure 2) blood cx one bottle positive for gram postive rods 3) Acute diastolic CHF 4) Afib with rvr 5) ruby plan: Pt currently intubated, on abx for now. Pt is on cardizam and cardiology has been consulted. Per notes pt was initially admitted at another hosptial and was transferred here due to acute confusion. UA appears normal. CXR unable to visualize lung bases, fluid vs consolidation. will monitor pt off sedation since 7am will montior. Pt did receive digoxin. * . Review of Systems - Review of Systems Other: unable to participate - Medications/Allergies Allergies/Adverse Reactions: Allergies Allergy/AdvReac Type Severity Reaction Status Date / Time hydrocodone AdvReac Verified 06/16/17 21:52 Medications: Current Medications Acetaminophen (Tylenol) 650 mg UT Q4H PRN PRN Reason: Headache/Fever or Mild Pain Clonidine (Catapres) 0.1 mg PO Q4H PRN PRN Reason: Systolic BP > 180 Digoxin (Lanoxin) 0.25 mg PO DAILY [facility] Last Admin: 06/19/17 08:24 Dose: 0.25 mg Enoxaparin Sodium (Lovenox) 110 mg SC 0900,2100 [facility] Last Admin: 06/19/17 08:25 Dose: 110 mg Furosemide (Lasix) 40 mg SLOW IVP 0600,1400 [facility] Last Admin: 06/19/17 05:50 Dose: 40 mg Hydralazine HCl (Apresoline) 10 mg SLOW IVP Q4H PRN PRN Reason: Systolic BP > 180 Fentanyl Citrate 2,000 mcg/ (Sodium Chloride) 100 mls @ 0 mls/hr IV INF [facility]; Per Protocol PRN Reason: Protocol Stop: 07/16/17 19:59 Last Admin: 06/18/17 03:33 Dose: 100 mls Fentanyl Citrate (Fentanyl Bolus) 250 mls @ 0 mls/hr IVPB PRN PRN; As Directed PRN Reason: Breakthrough pain/agitation Stop: 07/16/17 19:59 Ceftriaxone Sodium 2 gm/ (Sodium Chloride) 100 mls @ 200 mls/hr IVPB Q24HR [facility] Last Admin: 06/18/17 23:14 Dose: 100 mls Potassium Chloride 40 meq/ (Sodium Chloride) 270 mls @ 135 mls/hr IVPB ASDIR PRN PRN Reason: FOR SERUM K+ 2.5 - 3.5 Potassium Chloride 40 meq/ (Device) 100 mls @ 50 mls/hr IVPB ASDIR PRN PRN Reason: FOR SERUM K+ 2.5 - 3.5 Magnesium Sulfate 1 gm/ Sodium (Chloride) 102 mls @ 102 mls/hr IV PRN PRN PRN Reason: MAG LEVEL 1.4 - 2.0 Magnesium Sulfate 2 gm/ Device 100 mls @ 100 mls/hr IVPB ASDIR PRN PRN Reason: MAGNESIUM < 1.4 Potassium Phosphate 9 mmol/ (Sodium Chloride) 103 mls @ 25.75 mls/hr IVPB ASDIR PRN PRN Reason: Phosphate 1.0-1.8 Potassium Phosphate 12 mmol/ (Sodium Chloride) 254 mls @ 63.5 mls/hr IV ASDIR PRN PRN Reason: Serum phosphate 0.5-0.9 Potassium Phosphate 15 mmol/ (Sodium Chloride) 255 mls @ 63.75 mls/hr IV ASDIR PRN PRN Reason: Serum Phos < 0.5 Lorazepam (Ativan) 2 mg SLOW IVP Q1H PRN PRN Reason: Breakthrough agitation Stop: 07/16/17 19:59 Last Admin: 06/19/17 08:18 Dose: 2 mg Lorazepam (Ativan) 1 mg SLOW IVP Q4H PRN PRN Reason: Anxiety/Agitation Magnesium Oxide (Magnesium Oxide) 400 mg PO BIDPRN PRN PRN Reason: FOR SERUM MAG 1.4 - 2.0 Magnesium Oxide (Magnesium Oxide) 800 mg PO PRN PRN PRN Reason: FOR SERUM MAG < 1.4 Metoprolol Tartrate (Lopressor) 25 mg PO BID [facility] Last Admin: 06/19/17 08:24 Dose: 25 mg Metoprolol Tartrate (Lopressor) 5 mg IVP Q6H PRN PRN Reason: HR > 110 Miscellaneous Medication (Phos-Nak) 1 pkt PO TIDPRN PRN PRN Reason: FOR PHOS LEVEL 1.0 - 1.8 Miscellaneous Medication (Phos-Nak) 2 pkt PO TIDPRN PRN PRN Reason: FOR PHOS LEVEL 0.5 - 1.0 Miscellaneous Medication (Pharmacy To Dose) 0 each IVPB PRN PRN PRN Reason: VANCOMYCIN Morphine Sulfate (Morphine) 2 mg SLOW IVP Q1H PRN PRN Reason: breakthrough pain/agitation Stop: 07/16/17 19:59 Ondansetron HCl (Zofran Odt) 4 mg PO Q6H PRN PRN Reason: Nausea/Vomiting Ondansetron HCl (Zofran) 4 mg IVP Q6H PRN PRN Reason: Nausea/Vomiting Pantoprazole Sodium (Protonix) 40 mg PER TUBE DAILY [facility] Potassium Chloride (K-Dur) 40 meq PO ASDIR PRN PRN Reason: FOR SERUM K+ 2.5 - 3.5 Potassium Chloride (Klor-Con) 40 meq PER TUBE ASDIR PRN PRN Reason: FOR SERUM K+ 2.5-3.5 Last Admin: 06/19/17 05:50 Dose: 40 meq Propofol (Diprivan) 1,000 mg IV INF PRN; Protocol PRN Reason: TO ACHIEVE GOAL RASS Stop: 07/16/17 19:59 Last Admin: 06/17/17 05:44 Dose: 1,000 mg Propofol (Diprivan Bolus) 20 mg IV Q5MIN PRN PRN Reason: BREAKTHROUGH AGITATION Stop: 07/16/17 19:59 Sodium Chloride (Flush - Normal Saline) 10 ml IVF Q12HR [facility] Last Admin: 06/19/17 08:26 Dose: 10 ml Sodium Chloride (Flush - Normal Saline) 10 ml IVF PRN PRN PRN Reason: Saline Flush
[2017-06-19] MEDS ORDERED: Metoprolol Tartrate 5 MG/5 ML VIAL IVP PRN (12:19)
--- NOTE | 2017-06-19 12:40 | PDOC.PN ---
- Subjective Encounter Start Date: 06/19/17 Encounter Start Time: 09:45 Subjective: pt intubated - Objective Resuscitation Status: Resuscitation Status FULL:Full Resuscitation Vital Signs & Weight: Vital Signs (12 hours) Temp Pulse Resp BP Pulse Ox 06/19/17 11:00 98.9 F 06/19/17 10:54 77 06/19/17 10:00 17 06/19/17 08:24 107 H 06/19/17 08:00 99 F 76 17 100 06/19/17 07:29 88 06/19/17 07:00 99.1 F 06/19/17 06:57 84 06/19/17 06:00 21 H 06/19/17 04:00 22 H 06/19/17 02:00 13 06/19/17 01:56 95 131/77 Weight Admit Weight 246 lb 14.884 oz Weight 233 lb 11.04 oz Most Recent Monitor Data Heart Rate from ECG 78 NIBP 110/66 NIBP BP-Mean 82 Respiration from ECG 21 SpO2 100 I&O: 06/18/17 06/19/17 06/20/17 06:59 06:59 06:59 Intake Total 1077.4 1230.0 Output Total 2325 4330 1740 Balance -1247.6 -3100.0 -1740 Result Diagrams: 06/19/17 03:30 06/19/17 03:30 Phys Exam - Physical Examination HEENT: PERRLA, moist MMs, sclera anicteric, TM's clear, oral pharynx no lesions , 2+ tonsils Neck: no nodes, no JVD, supple, full ROM mild rhonchi Cardiovascular: irregular Gastrointestinal: soft, non-tender, no distention, positive bowel sounds Musculoskeletal: edema present pt does follow some commands Dx/Plan - Plan 1) Acute hypoxic and hypercapnic resp failure 2) blood cx one bottle positive for gram postive rods 3) Acute diastolic CHF 4) Afib with rvr 5) ruby plan: Pt currenlty intubated, on abx for now. Pt is on cardizam and cardiology has been consulted. Per notes pt was initially admitted at another hosptial and was transferred here due to acute confusion. UA appears normal. CXR unable to visualize lung bases, fluid vs consolidation. will monitor pt on cpap trials still appears drowsy and weak. cx negative will follow. * . Review of Systems - Review of Systems Other: unable to participate - Medications/Allergies Allergies/Adverse Reactions: Allergies Allergy/AdvReac Type Severity Reaction Status Date / Time hydrocodone AdvReac Verified 06/16/17 21:52 Medications: Current Medications Acetaminophen (Tylenol) 650 mg SC Q4H PRN PRN Reason: Headache/Fever or Mild Pain Clonidine (Catapres) 0.1 mg PO Q4H PRN PRN Reason: Systolic BP > 180 Digoxin (Lanoxin) 0.25 mg PO DAILY [facility] Last Admin: 06/19/17 08:24 Dose: 0.25 mg Enoxaparin Sodium (Lovenox) 110 mg SC 0900,2100 [facility] Last Admin: 06/19/17 08:25 Dose: 110 mg Furosemide (Lasix) 40 mg SLOW IVP 0600,1400 [facility] Last Admin: 06/19/17 05:50 Dose: 40 mg Hydralazine HCl (Apresoline) 10 mg SLOW IVP Q4H PRN PRN Reason: Systolic BP > 180 Fentanyl Citrate 2,000 mcg/ (Sodium Chloride) 100 mls @ 0 mls/hr IV INF [facility]; Per Protocol PRN Reason: Protocol Stop: 07/16/17 19:59 Last Admin: 06/18/17 03:33 Dose: 100 mls Fentanyl Citrate (Fentanyl Bolus) 250 mls @ 0 mls/hr IVPB PRN PRN; As Directed PRN Reason: Breakthrough pain/agitation Stop: 07/16/17 19:59 Ceftriaxone Sodium 2 gm/ (Sodium Chloride) 100 mls @ 200 mls/hr IVPB Q24HR [facility] Last Admin: 06/18/17 23:14 Dose: 100 mls Potassium Chloride 40 meq/ (Sodium Chloride) 270 mls @ 135 mls/hr IVPB ASDIR PRN PRN Reason: FOR SERUM K+ 2.5 - 3.5 Potassium Chloride 40 meq/ (Device) 100 mls @ 50 mls/hr IVPB ASDIR PRN PRN Reason: FOR SERUM K+ 2.5 - 3.5 Magnesium Sulfate 1 gm/ Sodium (Chloride) 102 mls @ 102 mls/hr IV PRN PRN PRN Reason: MAG LEVEL 1.4 - 2.0 Magnesium Sulfate 2 gm/ Device 100 mls @ 100 mls/hr IVPB ASDIR PRN PRN Reason: MAGNESIUM < 1.4 Potassium Phosphate 9 mmol/ (Sodium Chloride) 103 mls @ 25.75 mls/hr IVPB ASDIR PRN PRN Reason: Phosphate 1.0-1.8 Potassium Phosphate 12 mmol/ (Sodium Chloride) 254 mls @ 63.5 mls/hr IV ASDIR PRN PRN Reason: Serum phosphate 0.5-0.9 Potassium Phosphate 15 mmol/ (Sodium Chloride) 255 mls @ 63.75 mls/hr IV ASDIR PRN PRN Reason: Serum Phos < 0.5 Lorazepam (Ativan) 2 mg SLOW IVP Q1H PRN PRN Reason: Breakthrough agitation Stop: 07/16/17 19:59 Last Admin: 06/19/17 08:18 Dose: 2 mg Lorazepam (Ativan) 1 mg SLOW IVP Q4H PRN PRN Reason: Anxiety/Agitation Magnesium Oxide (Magnesium Oxide) 400 mg PO BIDPRN PRN PRN Reason: FOR SERUM MAG 1.4 - 2.0 Magnesium Oxide (Magnesium Oxide) 800 mg PO PRN PRN PRN Reason: FOR SERUM MAG < 1.4 Metoprolol Tartrate (Lopressor) 25 mg PO BID [facility] Last Admin: 06/19/17 08:24 Dose: 25 mg Metoprolol Tartrate (Lopressor) 5 mg IVP Q6H PRN PRN Reason: HR > 110 Miscellaneous Medication (Phos-Nak) 1 pkt PO TIDPRN PRN PRN Reason: FOR PHOS LEVEL 1.0 - 1.8 Miscellaneous Medication (Phos-Nak) 2 pkt PO TIDPRN PRN PRN Reason: FOR PHOS LEVEL 0.5 - 1.0 Miscellaneous Medication (Pharmacy To Dose) 0 each IVPB PRN PRN PRN Reason: VANCOMYCIN Morphine Sulfate (Morphine) 2 mg SLOW IVP Q1H PRN PRN Reason: breakthrough pain/agitation Stop: 07/16/17 19:59 Ondansetron HCl (Zofran Odt) 4 mg PO Q6H PRN PRN Reason: Nausea/Vomiting Ondansetron HCl (Zofran) 4 mg IVP Q6H PRN PRN Reason: Nausea/Vomiting Pantoprazole Sodium (Protonix) 40 mg PER TUBE DAILY [facility] Potassium Chloride (K-Dur) 40 meq PO ASDIR PRN PRN Reason: FOR SERUM K+ 2.5 - 3.5 Potassium Chloride (Klor-Con) 40 meq PER TUBE ASDIR PRN PRN Reason: FOR SERUM K+ 2.5-3.5 Last Admin: 06/19/17 05:50 Dose: 40 meq Propofol (Diprivan) 1,000 mg IV INF PRN; Protocol PRN Reason: TO ACHIEVE GOAL RASS Stop: 07/16/17 19:59 Last Admin: 06/17/17 05:44 Dose: 1,000 mg Propofol (Diprivan Bolus) 20 mg IV Q5MIN PRN PRN Reason: BREAKTHROUGH AGITATION Stop: 07/16/17 19:59 Sodium Chloride (Flush - Normal Saline) 10 ml IVF Q12HR [facility] Last Admin: 06/19/17 08:26 Dose: 10 ml Sodium Chloride (Flush - Normal Saline) 10 ml IVF PRN PRN PRN Reason: Saline Flush
--- NOTE | 2017-06-19 17:23 | CON ---
DATE OF CONSULTATION: 06/19/2017 NEUROLOGY CONSULTATION CONSULTING PHYSICIAN: Dr. Esparza. IMPRESSION: Lethargy of uncertain etiology. PLAN: 1. EEG. 2. CT scan of the brain without contrast. 3. T4 and ammonia level. HOSPITAL COURSE: Ms. Ambrose is an 82-year-old woman who reportedly was independently living prior to h er admission. She came in with shortness of breath and peripheral edema. She was subsequently intub ated and was given diuretics. She was initially quite hypercapnic, but this is improved and is curre ntly running in the 50s. She has not been on any sedation other than a little bit of Ativan last nig ht. She remains limitedly responsive according to the nursing staff. She has been afebrile as well. Metabolic studies were all unremarkable. She has been on Solu-Medrol and was recently switched ove r to prednisone. PAST MEDICAL HISTORY: As per chart. ALLERGIES: HYDROCODONE. MEDICATION: List was reviewed. FAMILY HISTORY: Noncontributory. REVIEW OF SYSTEMS: Not obtainable. PHYSICAL EXAMINATION: GENERAL: She is an overweight, elderly lady on ventilatory support. VITAL SIGNS: Pulse 100, blood pressure 146/89, and saturations 97%. HEENT: Pupils are equal. Conjunctivae clear. Eyes are conjugate. She will open her eyes spontaneo usly to stimulation. She could not get her to follow any other commands. EXTREMITIES: She seems to move all 4 extremities equally well. She responds to touch symmetrically. Her toes were downgoing bilaterally. No abnormal movements were seen. SUMMARY: This is an elderly lady who been hypercapnic, but otherwise no other metabolic etiology has been present to make her lethargic. Pursue further workup to see if there is any other underlying c ause.
--- NOTE | 2017-06-19 20:39 | CT ---
NONCONTRAST HEAD CT 06/19/17 HISTORY: Encephalopathy. Patient has ongoing unresponsiveness. COMPARISON: 06/16/17. TECHNIQUE: Noncontrast head CT is performed from the skull base to skull vertex. FINDINGS: No parenchymal hemorrhage. No extra-axial hematoma. No midline shift. Basilar cisterns are patent. Brain volume is age appropriate. Cortical hurtado-white matter differentiation is preserved. Ventricles and sulci are patent and symmetric. Calvarium is intact. Adequate aeration of the mastoid air cells. Left maxillary sinus disease is again demonstrated. IMPRESSION: No acute intracranial process. No significant interval change. POS: [facility]
[2017-06-19] MEDS: cefTRIAXone\\ROCEPHIN 2 GM in Sodium Chloride 0.9% 100 ML IVPB SCH (23:29)
[2017-06-20] MEDS: Furosemide 40 MG/4 ML VIAL SLOW IVP SCH (06:00)
[2017-06-20 06:17] LABS: #Eosinphils 0.2 thou/uL (0.0-0.7); #Neutrophils 4.7 thou/uL (1.40-6.50); %Basophils 0.1 % (0.0-1.0); %Eosinophils 2.6 % (0.0-10.0); %Lymphocytes 13.9 % (21.0-51.0); %Monocytes 14.7 % (0.0-10.0); %Neutrophils 68.7 % (42.0-75.0); Hemoglobin 10.9 g/dL (12.0-16.0); Mean Corpuscular HGB CONC 29.9 g/dL (32.0-36.0); Mean Corpuscular Hemoglobin 25.8 pg (27.0-31.0); Mean Corpuscular Volume 86.4 fl (81.0-99.0); Mean Platelet Volume 8.2 fL (7.4-10.4); Platelet Count 228 thou/uL (130-400); RBC Distribution Width 16.1 % (11.5-14.5); Red Blood Cell (RBC) Count 4.23 mill/uL (4.20-5.40); White Blood Cell (WBC) Count 6.9 thou/uL (4.8-10.8)
[2017-06-20 06:24] LABS: BUN (Urea Nitrogen) 29 mg/dL (9.8-20.1); Calc. Creatinine Clearance 106 mL/min (70-130); Calcium 9.1 mg/dL (7.8-10.44); Estimated GFR-MDRD 83; Glucose 103 mg/dL (83-110)
[2017-06-20 06:33] LABS: Anion Gap 15 mmol/L (10-20); Carbon Dioxide 39 mmol/L (23-31); Chloride 95 mmol/L (98-107); Potassium 3.4 mmol/L (3.5-5.1); Sodium 146 mmol/L (136-145)
[2017-06-20 06:57] LABS: Actual Bicarbonate (HCO3a) 47.8 mEq/L (22-26); Base Excess (BEa) 20.7 mEq/L (0 (+/-) 2.5); CO2 Tension 67.6 mmHg (35.0-45.0); Calcium, Ionized 1.2 mmol/L (1.12-1.30); Hematocrit-ABG 38.8 % (36.0-47.0); Hemoglobin (Hb) 11.3 g/dL (12.0-16.0); O2 Tension (PaO2) 92.1 mmHg (80.0-100.0); Potassium - ABG Lab 3.1 mmol/L (3.70-5.30); Puncture Site RRA; pH, Arterial 7.46 (7.35-7.45)
--- NOTE | 2017-06-20 07:55 | PRG ---
DATE OF SERVICE: 06/20/2017 A 35 minutes critical care time. SUBJECTIVE: The patient remains intubated on mechanical ventilation. Today, she is more awake, she can actually follow some commands and nod her head appropriately. PHYSICAL EXAMINATION: VITAL SIGNS: Her temperature is 98.4, pulse 99, blood pressure 152/87. A 24-hour intake 886, output 6585. HEENT: Unremarkable. NECK: No JVD. LUNGS: Clear anteriorly. CARDIOVASCULAR: S1, S2, slightly tachycardic. ABDOMEN: Soft, nontender. EXTREMITIES: No edema. LABORATORY DATA: Sodium 146, potassium 3.4, chloride 95, CO2 39, BUN 29, creatinine 0.6, glucose 83. White blood cell count 6.9, hematocrit 36.6, platelet count 228. Blood gas, pH 7.46, pCO2 of 67, p O2 of 92 on SIMV rate 12, tidal volume 400, PEEP 5, pressure support 16, FIO2 40%. ASSESSMENT: 1. Improved encephalopathy. 2. Acute respiratory failure requiring mechanical ventilation. 3. Possible concurrent sepsis. 4. Developing metabolic alkalosis with compensatory respiratory acidosis. PLAN: 1. Stop the Lasix as she is developing a contraction alkalosis and start Diamox. 2. Start cutting down respiratory rate on vent. I do not think she is strong enough to wean. I put her on spontaneous breathing this morning and she pulled very small tidal volumes with a pressure kurtz pport of 16. 3. Minimize sedation as much as possible. 4. Continue enteral tube feeds. 5. Would stop antibiotics after 7 days.
[2017-06-20] MEDS: acetaZOLAMIDE Sodium 500 mg Vial IVP SCH ×2 (08:45→20:25)
[2017-06-20] MEDS: Digoxin 0.25 MG TAB PO SCH (08:46)
[2017-06-20] MEDS: Metoprolol Tartrate 25 MG TAB PO SCH ×2 (08:46→20:25)
[2017-06-20] MEDS: Pantoprazole 40 MG GRANULES PACKET PER TUBE SCH (08:46)
[2017-06-20] MEDS: Enoxaparin Sodium 120 MG/0.8 ML SYRINGE SC SCH ×2 (08:46→20:25)
[2017-06-20] MEDS ORDERED: acetaZOLAMIDE Sodium 500 mg Vial IVP SCH (09:00)
[2017-06-20] MEDS: Sterile Water 10 ML VIAL IVP SCH ×2 (10:54→20:47)
--- NOTE | 2017-06-20 11:36 | PQF ---
CLINICAL DOCUMENTATION IMPROVEMENT CLARIFICATION FORM: ICD-10 Updated PLEASE DO AN ADDENDUM TO THE PROGRESS NOTE WITH ANY DOCUMENTATION UPDATES OR ADDITIONS AND CARRY THROUGH TO DC SUMMARY. THANK YOU. DATE: 06/20/17 ATTN: DR. MCQUEEN Please exercise your independent, professional judgment in responding to the clarification form. Clinical indicators are provided on the bottom of this form for your review Please check appropriate box(s) to clarify if the following diagnosis has been ruled in or ruled out: SEPSIS [ ] Ruled in diagnosis [ ] Continue to treat [ x ] Resolved [ ] Ruled out diagnosis [ ] Cannot rule out diagnosis [ ] Other diagnosis [ ] Unable to determine In addition, please specify: Present on Admission (POA): [ ] Yes [ ] No [ x ] Unable to determine For continuity of documentation, please document condition throughout progress notes and discharge summary. Thank You. CLINICAL INDICATORS - SIGNS / SYMPTOMS / LABS PROGRESS NOTE 06/17: "THE PATIENT APPEARS TO HAVE A GRAM-NEGATIVE SEPSIS" PULMONARY NOTE 06/18: "QUESTION OF CONCURRENT SEPSIS" BANDS 3 PULSE 128 RR 30 RECTAL TEMP 97.6 INCREASED CONFUSION RISKS: TRANSFERRED FROM OUTSIDE FACILITY [facility] URINE + WBCS TREATMENT: IV ROCEPHIN MECHANICAL VENT CRITICAL CARE MONITORING BLOOD AND URINE CULTURES SERIAL LABS (This form is maintained as a part of the permanent medical record) 2015 [employer]. All Rights Reserved AVILA [email or web address] Office: [phone] MARIAH
--- NOTE | 2017-06-20 15:22 | PDOC.PN ---
- Subjective Encounter Start Date: 06/20/17 Encounter Start Time: 11:00 Subjective: pt intubated - Objective Resuscitation Status: Resuscitation Status FULL:Full Resuscitation Vital Signs & Weight: Vital Signs (12 hours) Temp Pulse Resp Pulse Ox 06/20/17 14:00 17 06/20/17 13:04 88 06/20/17 12:00 98.5 F 17 06/20/17 10:24 97 06/20/17 10:00 17 06/20/17 08:46 119 H 06/20/17 08:00 98.9 F 97 17 97 06/20/17 06:40 108 H 06/20/17 06:00 18 06/20/17 04:00 16 Weight Admit Weight 246 lb 14.884 oz Weight 228 lb 2.855 oz Most Recent Monitor Data Heart Rate from ECG 85 NIBP 138/75 NIBP BP-Mean 104 Respiration from ECG 8 SpO2 97 I&O: 06/19/17 06/20/17 06/21/17 06:59 06:59 06:59 Intake Total 1230.0 886 Output Total 4330 6585 3425 Balance -3100.0 -5699 -3425 Result Diagrams: 06/20/17 03:50 06/20/17 03:50 Phys Exam - Physical Examination Neck: no nodes, no JVD, supple, full ROM mild crackels to bases Cardiovascular: RRR, no significant murmur, no rub, gallop, irregular Gastrointestinal: soft, non-tender, no distention, positive bowel sounds Musculoskeletal: no edema, pulses present, edema present more awake on stimulation but now follows Dx/Plan - Plan 1) Acute hypoxic and hypercapnic resp failure 2) Acute diastolic CHF 3) Afib with rvr controlled 4) ruby resolved plan: Pt currenlty intubated, on abx for now. Pt is on cardizam and cardiology has been consulted. Per notes pt was initially admitted at another hosptial and was transferred here due to acute confusion. UA appears normal. CXR unable to visualize lung bases, fluid vs consolidation. will monitor pt on cpap trials still appears drowsy and weak. cx negative will follow. 06/[address] head negative, eeg negative. * . Review of Systems - Review of Systems Other: pt intubated - Medications/Allergies Allergies/Adverse Reactions: Allergies Allergy/AdvReac Type Severity Reaction Status Date / Time hydrocodone AdvReac Verified 06/16/17 21:52 Medications: Current Medications Acetaminophen (Tylenol) 650 mg IA Q4H PRN PRN Reason: Headache/Fever or Mild Pain Acetazolamide Sodium (Diamox) 250 mg IVP Q12HR [facility] Last Admin: 06/20/17 08:45 Dose: 250 mg Clonidine (Catapres) 0.1 mg PO Q4H PRN PRN Reason: Systolic BP > 180 Digoxin (Lanoxin) 0.25 mg PO DAILY [facility] Last Admin: 06/20/17 08:46 Dose: 0.25 mg Enoxaparin Sodium (Lovenox) 110 mg SC 0900,2100 [facility] Last Admin: 06/20/17 08:46 Dose: 110 mg Hydralazine HCl (Apresoline) 10 mg SLOW IVP Q4H PRN PRN Reason: Systolic BP > 180 Fentanyl Citrate 2,000 mcg/ (Sodium Chloride) 100 mls @ 0 mls/hr IV INF [facility]; Per Protocol PRN Reason: Protocol Stop: 07/16/17 19:59 Last Admin: 06/18/17 03:33 Dose: 100 mls Fentanyl Citrate (Fentanyl Bolus) 250 mls @ 0 mls/hr IVPB PRN PRN; As Directed PRN Reason: Breakthrough pain/agitation Stop: 07/16/17 19:59 Ceftriaxone Sodium 2 gm/ (Sodium Chloride) 100 mls @ 200 mls/hr IVPB Q24HR [facility] Last Admin: 06/19/17 23:29 Dose: 100 mls Potassium Chloride 40 meq/ (Sodium Chloride) 270 mls @ 135 mls/hr IVPB ASDIR PRN PRN Reason: FOR SERUM K+ 2.5 - 3.5 Potassium Chloride 40 meq/ (Device) 100 mls @ 50 mls/hr IVPB ASDIR PRN PRN Reason: FOR SERUM K+ 2.5 - 3.5 Magnesium Sulfate 1 gm/ Sodium (Chloride) 102 mls @ 102 mls/hr IV PRN PRN PRN Reason: MAG LEVEL 1.4 - 2.0 Magnesium Sulfate 2 gm/ Device 100 mls @ 100 mls/hr IVPB ASDIR PRN PRN Reason: MAGNESIUM < 1.4 Potassium Phosphate 9 mmol/ (Sodium Chloride) 103 mls @ 25.75 mls/hr IVPB ASDIR PRN PRN Reason: Phosphate 1.0-1.8 Potassium Phosphate 12 mmol/ (Sodium Chloride) 254 mls @ 63.5 mls/hr IV ASDIR PRN PRN Reason: Serum phosphate 0.5-0.9 Potassium Phosphate 15 mmol/ (Sodium Chloride) 255 mls @ 63.75 mls/hr IV ASDIR PRN PRN Reason: Serum Phos < 0.5 Lorazepam (Ativan) 2 mg SLOW IVP Q1H PRN PRN Reason: Breakthrough agitation Stop: 07/16/17 19:59 Last Admin: 06/19/17 08:18 Dose: 2 mg Lorazepam (Ativan) 1 mg SLOW IVP Q4H PRN PRN Reason: Anxiety/Agitation Magnesium Oxide (Magnesium Oxide) 400 mg PO BIDPRN PRN PRN Reason: FOR SERUM MAG 1.4 - 2.0 Magnesium Oxide (Magnesium Oxide) 800 mg PO PRN PRN PRN Reason: FOR SERUM MAG < 1.4 Metoprolol Tartrate (Lopressor) 25 mg PO BID [facility] Last Admin: 06/20/17 08:46 Dose: 25 mg Metoprolol Tartrate (Lopressor) 5 mg IVP Q6H PRN PRN Reason: HR > 110 Last Admin: 06/20/17 08:47 Dose: 5 mg Miscellaneous Medication (Phos-Nak) 1 pkt PO TIDPRN PRN PRN Reason: FOR PHOS LEVEL 1.0 - 1.8 Miscellaneous Medication (Phos-Nak) 2 pkt PO TIDPRN PRN PRN Reason: FOR PHOS LEVEL 0.5 - 1.0 Morphine Sulfate (Morphine) 2 mg SLOW IVP Q1H PRN PRN Reason: breakthrough pain/agitation Stop: 07/16/17 19:59 Ondansetron HCl (Zofran Odt) 4 mg PO Q6H PRN PRN Reason: Nausea/Vomiting Ondansetron HCl (Zofran) 4 mg IVP Q6H PRN PRN Reason: Nausea/Vomiting Pantoprazole Sodium (Protonix) 40 mg PER TUBE DAILY [facility] Last Admin: 06/20/17 08:46 Dose: 40 mg Potassium Chloride (K-Dur) 40 meq PO ASDIR PRN PRN Reason: FOR SERUM K+ 2.5 - 3.5 Potassium Chloride (Klor-Con) 40 meq PER TUBE [facility] PRN PRN Reason: FOR SERUM K+ 2.5-3.5 Last Admin: 06/19/17 05:50 Dose: 40 meq Propofol (Diprivan) 1,000 mg IV INF PRN; Protocol PRN Reason: TO ACHIEVE GOAL RASS Stop: 07/16/17 19:59 Last Admin: 06/17/17 05:44 Dose: 1,000 mg Propofol (Diprivan Bolus) 20 mg IV Q5MIN PRN PRN Reason: BREAKTHROUGH AGITATION Stop: 07/16/17 19:59 Sodium Chloride (Flush - Normal Saline) 10 ml IVF Q12HR [facility] Last Admin: 06/20/17 08:47 Dose: 10 ml Sodium Chloride (Flush - Normal Saline) 10 ml IVF PRN PRN PRN Reason: Saline Flush Sterile Water (Water For Injection) 10 ml IVP Q12HR [facility] Last Admin: 06/20/17 10:54 Dose: Not Given
[2017-06-20] MEDS: cefTRIAXone\\ROCEPHIN 2 GM in Sodium Chloride 0.9% 100 ML IVPB SCH (21:07)
[2017-06-21 05:15] LABS: #Eosinphils 0.2 thou/uL (0.0-0.7); #Lymphocytes 1.2 thou/uL (1.20-3.40); #Monocytes 0.8 thou/uL (0.11-0.59); %Basophils 0.1 % (0.0-1.0); %Eosinophils 3.3 % (0.0-10.0); %Lymphocytes 18.7 % (21.0-51.0); Hemoglobin 10.9 g/dL (12.0-16.0); Mean Corpuscular HGB CONC 29.9 g/dL (32.0-36.0); Mean Corpuscular Hemoglobin 25.7 pg (27.0-31.0); Mean Corpuscular Volume 85.9 fl (81.0-99.0); Mean Platelet Volume 7.8 fL (7.4-10.4); Platelet Count 212 thou/uL (130-400); RBC Distribution Width 16.1 % (11.5-14.5); Red Blood Cell (RBC) Count 4.24 mill/uL (4.20-5.40); White Blood Cell (WBC) Count 6.2 thou/uL (4.8-10.8)
[2017-06-21 05:29] LABS: BUN (Urea Nitrogen) 27 mg/dL (9.8-20.1); Calc. Creatinine Clearance 104 mL/min (70-130); Calcium 9.3 mg/dL (7.8-10.44); Estimated GFR-MDRD 86; Glucose 111 mg/dL (83-110)
[2017-06-21 05:38] LABS: Anion Gap 9 mmol/L (10-20); Carbon Dioxide 39 mmol/L (23-31); Chloride 99 mmol/L (98-107); Potassium 3.2 mmol/L (3.5-5.1); Sodium 144 mmol/L (136-145)
[2017-06-21 07:45] LABS: Actual Bicarbonate (HCO3a) 40.6 mEq/L (22-26); Base Excess (BEa) 13.2 mEq/L (0 (+/-) 2.5); CO2 Tension 69.6 mmHg (35.0-45.0); Carboxyhemoglobin (COHb) 2.1 gm% (0.0-3.0); Hemoglobin (Hb) 10.2 g/dL (12.0-16.0); O2 Tension (PaO2) 127.1 mmHg (80.0-100.0); pH, Arterial 7.38 (7.35-7.45)
[2017-06-21 07:46] LABS: Calcium, Ionized 1.3 mmol/L (1.12-1.30); Potassium - ABG Lab 3.5 mmol/L (3.70-5.30); Puncture Site RRA
--- NOTE | 2017-06-21 08:59 | PRG ---
DATE OF SERVICE: 06/21/2017 A 35 minutes critical care time. SUBJECTIVE: The patient remains intubated on mechanical ventilation. She will wake up and follow co mmands for me. PHYSICAL EXAMINATION: VITAL SIGNS: Temperature is 98.2, pulse 101, blood pressure 162/85. A 24-hour intake 2290, output 6 060. Weight 218 pounds. HEENT: Unremarkable. NECK: No JVD. LUNGS: Fairly clear anteriorly. CARDIOVASCULAR: S1 and S2, irregularly irregular. ABDOMEN: Soft, nontender. EXTREMITIES: No edema. LABORATORY DATA: Sodium 144, potassium 3.2, chloride 99, CO2 39, BUN 27, creatinine 0.6, glucose 111 . White blood cell count 6.2, hematocrit 36.4, platelet count 212, pH 7.38, pCO2 of 70, pO2 127. X-RAY FINDINGS: No x-ray was done today. ASSESSMENT: 1. Acute respiratory failure requiring mechanical ventilation. 2. Complex acid base status with severe metabolic alkalosis and compensatory respiratory acidosis. 3. Possible concurrent sepsis. PLAN: 1. Increase respiratory rate on vent. 2. Continue Diamox. Hopefully, we can get her pCO2 down some and move towards extubation. 3. Continue enteral tube feeds. 4. Discontinue antibiotics after 7 days - she still has a couple more days to go. 5. Decrease enoxaparin, because she is demonstrating some bleeding and her weight need to be adjuste d. Given her age greater than 81, I would rather have her dose to once daily rather than twice a day . We may have to consider decreasing the Lovenox even further if bleeding becomes more of an issue.
[2017-06-21] MEDS ORDERED: Enoxaparin Sodium 100 MG/ML SYRINGE SC SCH ×2 (09:00→21:00)
[2017-06-21] MEDS: acetaZOLAMIDE Sodium 500 mg Vial IVP SCH ×2 (09:27→21:18)
[2017-06-21] MEDS: Digoxin 0.25 MG TAB PO SCH (09:27)
[2017-06-21] MEDS: Metoprolol Tartrate 25 MG TAB PO SCH ×2 (09:28→21:18)
[2017-06-21] MEDS: Pantoprazole 40 MG GRANULES PACKET PER TUBE SCH (09:28)
[2017-06-21] MEDS: Sterile Water 10 ML VIAL IVP SCH ×2 (10:00→21:18)
[2017-06-21] MEDS: Lorazepam 2 MG/ML VIAL SLOW IVP PRN (11:42)
[2017-06-21] MEDS: cefTRIAXone\\ROCEPHIN 2 GM in Sodium Chloride 0.9% 100 ML IVPB SCH (21:18)
--- NOTE | 2017-06-21 21:21 | PDOC.PN ---
- Subjective Encounter Start Date: 06/21/17 Encounter Start Time: 09:45 Subjective: pt intubated - Objective Resuscitation Status: Resuscitation Status FULL:Full Resuscitation Vital Signs & Weight: Vital Signs (12 hours) Temp Pulse Resp BP Pulse Ox 06/21/17 20:00 98.3 F 80 20 98 06/21/17 19:00 98.3 F 06/21/17 18:15 92 109/63 06/21/17 18:00 20 06/21/17 16:00 97.7 F 20 06/21/17 14:24 83 120/77 06/21/17 14:00 20 06/21/17 12:00 100.1 F H 20 06/21/17 10:15 75 134/74 06/21/17 09:27 99 Weight Admit Weight 246 lb 14.884 oz Weight 218 lb 0.595 oz Most Recent Monitor Data Heart Rate from ECG 90 NIBP 164/76 NIBP BP-Mean 125 Respiration from ECG 18 SpO2 97 I&O: 06/20/17 06/21/17 06/22/17 06:59 06:59 06:59 Intake Total 886 2292 856 Output Total 6585 6060 1215 [facility] [place] [phone] Result Diagrams: 06/21/17 04:40 06/21/17 04:40 Phys Exam - Physical Examination Neck: no nodes, no JVD, supple, full ROM mild rhonchi and mild crackles to bases Cardiovascular: RRR, no significant murmur, no rub, gallop, irregular Gastrointestinal: soft, positive bowel sounds Musculoskeletal: edema present mild Dx/Plan - Plan 1) Acute hypoxic and hypercapnic resp failure 2) Acute diastolic CHF 3) Afib with rvr controlled 4) ruby resolved plan: Pt currenlty intubated, on abx for now. Pt is on cardizam and cardiology has been consulted. Per notes pt was initially admitted at another hosptial and was transferred here due to acute confusion. UA appears normal. CXR unable to visualize lung bases, fluid vs consolidation. will monitor pt on cpap trials still appears drowsy and weak. cx negative will follow. 06/[address] head negative, eeg negative. 06/22 moderate amount of blood suctions from ET tube. Lovonox dose adjusted. * . Review of Systems - Review of Systems Other: pt intubated - Medications/Allergies Allergies/Adverse Reactions: Allergies Allergy/AdvReac Type Severity Reaction Status Date / Time hydrocodone AdvReac Verified 06/16/17 21:52 Medications: Current Medications Acetaminophen (Tylenol) 650 mg RI Q4H PRN PRN Reason: Headache/Fever or Mild Pain Acetazolamide Sodium (Diamox) 250 mg IVP Q12HR [facility] Last Admin: 06/21/17 21:18 Dose: 250 mg Clonidine (Catapres) 0.1 mg PO Q4H PRN PRN Reason: Systolic BP > 180 Digoxin (Lanoxin) 0.25 mg PO DAILY [facility] Last Admin: 06/21/17 09:27 Dose: 0.25 mg Hydralazine HCl (Apresoline) 10 mg SLOW IVP Q4H PRN PRN Reason: Systolic BP > 180 Fentanyl Citrate 2,000 mcg/ (Sodium Chloride) 100 mls @ 0 mls/hr IV INF SHAHBAZ; Per Protocol PRN Reason: Protocol Stop: 07/16/17 19:59 Last Admin: 06/18/17 03:33 Dose: 100 mls Fentanyl Citrate (Fentanyl Bolus) 250 mls @ 0 mls/hr IVPB PRN PRN; As Directed PRN Reason: Breakthrough pain/agitation Stop: 07/16/17 19:59 Ceftriaxone Sodium 2 gm/ (Sodium Chloride) 100 mls @ 200 mls/hr IVPB Q24HR [facility] Last Admin: 06/21/17 21:18 Dose: 100 mls Potassium Chloride 40 meq/ (Sodium Chloride) 270 mls @ 135 mls/hr IVPB ASDIR PRN PRN Reason: FOR SERUM K+ 2.5 - 3.5 Potassium Chloride 40 meq/ (Device) 100 mls @ 50 mls/hr IVPB ASDIR PRN PRN Reason: FOR SERUM K+ 2.5 - 3.5 Magnesium Sulfate 1 gm/ Sodium (Chloride) 102 mls @ 102 mls/hr IV PRN PRN PRN Reason: MAG LEVEL 1.4 - 2.0 Magnesium Sulfate 2 gm/ Device 100 mls @ 100 mls/hr IVPB ASDIR PRN PRN Reason: MAGNESIUM < 1.4 Potassium Phosphate 9 mmol/ (Sodium Chloride) 103 mls @ 25.75 mls/hr IVPB ASDIR PRN PRN Reason: Phosphate 1.0-1.8 Potassium Phosphate 12 mmol/ (Sodium Chloride) 254 mls @ 63.5 mls/hr IV ASDIR PRN PRN Reason: Serum phosphate 0.5-0.9 Potassium Phosphate 15 mmol/ (Sodium Chloride) 255 mls @ 63.75 mls/hr IV ASDIR PRN PRN Reason: Serum Phos < 0.5 Lorazepam (Ativan) 2 mg SLOW IVP Q1H PRN PRN Reason: Breakthrough agitation Stop: 07/16/17 19:59 Last Admin: 06/21/17 11:42 Dose: 2 mg Lorazepam (Ativan) 1 mg SLOW IVP Q4H PRN PRN Reason: Anxiety/Agitation Magnesium Oxide (Magnesium Oxide) 400 mg PO BIDPRN PRN PRN Reason: FOR SERUM MAG 1.4 - 2.0 Magnesium Oxide (Magnesium Oxide) 800 mg PO PRN PRN PRN Reason: FOR SERUM MAG < 1.4 Metoprolol Tartrate (Lopressor) 25 mg PO BID [facility] Last Admin: 06/21/17 21:18 Dose: 25 mg Metoprolol Tartrate (Lopressor) 5 mg IVP Q6H PRN PRN Reason: HR > 110 Last Admin: 06/20/17 08:47 Dose: 5 mg Miscellaneous Medication (Phos-Nak) 1 pkt PO TIDPRN PRN PRN Reason: FOR PHOS LEVEL 1.0 - 1.8 Miscellaneous Medication (Phos-Nak) 2 pkt PO TIDPRN PRN PRN Reason: FOR PHOS LEVEL 0.5 - 1.0 Morphine Sulfate (Morphine) 2 mg SLOW IVP Q1H PRN PRN Reason: breakthrough pain/agitation Stop: 07/16/17 19:59 Ondansetron HCl (Zofran Odt) 4 mg PO Q6H PRN PRN Reason: Nausea/Vomiting Ondansetron HCl (Zofran) 4 mg IVP Q6H PRN PRN Reason: Nausea/Vomiting Pantoprazole Sodium (Protonix) 40 mg PER TUBE DAILY [facility] Last Admin: 06/21/17 09:28 Dose: 40 mg Potassium Chloride (K-Dur) 40 meq PO ASDIR PRN PRN Reason: FOR SERUM K+ 2.5 - 3.5 Potassium Chloride (Klor-Con) 40 meq PER TUBE ASDIR PRN PRN Reason: FOR SERUM K+ 2.5-3.5 Last Admin: 06/21/17 05:25 Dose: 40 meq Propofol (Diprivan) 1,000 mg IV INF PRN; Protocol PRN Reason: TO ACHIEVE GOAL RASS Stop: 07/16/17 19:59 Last Admin: 06/17/17 05:44 Dose: 1,000 mg Propofol (Diprivan Bolus) 20 mg IV Q5MIN PRN PRN Reason: BREAKTHROUGH AGITATION Stop: 07/16/17 19:59 Sodium Chloride (Flush - Normal Saline) 10 ml IVF Q12HR [facility] Last Admin: 06/21/17 21:18 Dose: 10 ml Sodium Chloride (Flush - Normal Saline) 10 ml IVF PRN PRN PRN Reason: Saline Flush Sterile Water (Water For Injection) 10 ml IVP Q12HR [facility] Last Admin: 06/21/17 21:18 Dose: 10 ml
[2017-06-22 04:41] LABS: Anion Gap 12 mmol/L (10-20); BUN (Urea Nitrogen) 32 mg/dL (9.8-20.1); Calc. Creatinine Clearance 101 mL/min (70-130); Calcium 9.5 mg/dL (7.8-10.44); Carbon Dioxide 30 mmol/L (23-31); Chloride 105 mmol/L (98-107); Estimated GFR-MDRD 83; Glucose 103 mg/dL (83-110); Potassium 3.5 mmol/L (3.5-5.1); Sodium 143 mmol/L (136-145)
[2017-06-22 04:42] LABS: #Eosinphils 0.2 thou/uL (0.0-0.7); #Lymphocytes 1.2 thou/uL (1.20-3.40); #Monocytes 0.8 thou/uL (0.11-0.59); %Basophils 0.7 % (0.0-1.0); %Eosinophils 3.7 % (0.0-10.0); %Lymphocytes 19.5 % (21.0-51.0); %Neutrophils 63.1 % (42.0-75.0); Hemoglobin 10.5 g/dL (12.0-16.0); Mean Corpuscular Hemoglobin 25.5 pg (27.0-31.0); Mean Platelet Volume 8.4 fL (7.4-10.4); Platelet Count 211 thou/uL (130-400); RBC Distribution Width 16.7 % (11.5-14.5); Red Blood Cell (RBC) Count 4.12 mill/uL (4.20-5.40); White Blood Cell (WBC) Count 6.3 thou/uL (4.8-10.8)
[2017-06-22 07:11] LABS: Actual Bicarbonate (HCO3a) 32.3 mEq/L (22-26); CO2 Tension 44.3 mmHg (35.0-45.0); Calcium, Ionized 1.3 mmol/L (1.12-1.30); Carboxyhemoglobin (COHb) 2.1 gm% (0.0-3.0); Hematocrit-ABG 31.2 % (36.0-47.0); Hemoglobin (Hb) 9.5 g/dL (12.0-16.0); O2 Tension (PaO2) 108.6 mmHg (80.0-100.0); Potassium - ABG Lab 2.9 mmol/L (3.70-5.30); Puncture Site LRA; pH, Arterial 7.48 (7.35-7.45)
[2017-06-22 07:12] LABS: ALV-art Gradient 121.225 (0-20)
[2017-06-22] MEDS: Digoxin 0.25 MG TAB PO SCH (08:15)
[2017-06-22] MEDS: Pantoprazole 40 MG GRANULES PACKET PER TUBE SCH (08:15)
[2017-06-22] MEDS: Metoprolol Tartrate 25 MG TAB PO SCH ×2 (08:15→21:09)
[2017-06-22] MEDS: acetaZOLAMIDE Sodium 500 mg Vial IVP SCH ×2 (08:15→21:09)
[2017-06-22] MEDS: Sterile Water 10 ML VIAL IVP SCH ×2 (08:22→21:09)
--- NOTE | 2017-06-22 08:44 | RAD ---
AP VIEW CHEST: HISTORY: Ventilator-dependent patient. FINDINGS: AP view chest is obtained on . Comparison is made to previous exam from 06/19/17. AP view chest demonstrates nasogastric and endotracheal tubes to be in place. There is blunting of the right costophrenic angle compatible with a right-sided pleural effusion. Ec belkis of the aorta is seen. Some mild pulmonary vascular congestion is seen. IMPRESSION: Right-sided pleural effusion and cardiomegaly. POS: TPC
--- NOTE | 2017-06-22 10:25 | PRG ---
DATE OF SERVICE: 06/22/2017 Thirty-five minutes critical care time. SUBJECTIVE: The patient remains intubated on mechanical ventilation. She is awake, alert, follows c ommands. OBJECTIVE: VITAL SIGNS: On exam, temperature is 99.5 with no fever overnight, pulse 91, blood pressure 131/81. A 24-hour intake 1949 and output 2235. HEENT: Unremarkable. NECK: No JVD. LUNGS: Clear breath sounds. CARDIAC: S1 and S2, regular. ABDOMEN: Soft. EXTREMITIES: No edema. LABORATORY DATA: ABG: PH 7.48, PCO2 of 44, pO2 of 108 on SIMV rate 20, tidal 400, PEEP 5, pressure support 16, FiO2 40%. White blood cell count 6.3, hematocrit 35.1, platelet count 211. Sodium 142,0 00, potassium 3.5, chloride 105, CO2 of 30, BUN 32, creatinine 0.6, glucose 83. Her chest x-ray shows improving lung infiltrates. ASSESSMENT: 1. Acute respiratory failure, requiring mechanical ventilation. 2. Complex acid-based status. She has severe metabolic acidosis with a compensating respiratory aci dosis. With Diamox her alkalosis has improved and her pCO2 has dropped. 3. Neuromuscular weakness. 4. Possible recurrent sepsis. 5. Severe hemoptysis yesterday, on high dose Lovenox. PLAN: 1. The Lovenox was stopped yesterday. If restarted, I would just restart a prophylactic dose tomorr ow. 2. Continue enteral tube feeds. 3. I have decreased her respiratory rate on the vent. I have instructed the respiratory therapist t o start working on her pressure support. I think she can probably be extubated in the next 2-3 days if things go well. 4. Continue antibiotics through 7 days.
[2017-06-22] MEDS: cefTRIAXone\\ROCEPHIN 2 GM in Sodium Chloride 0.9% 100 ML IVPB SCH (21:09)
[2017-06-23 04:09] LABS: #Eosinphils 0.3 thou/uL (0.0-0.7); #Lymphocytes 1.2 thou/uL (1.20-3.40); #Monocytes 0.8 thou/uL (0.11-0.59); #Neutrophils 4.1 thou/uL (1.40-6.50); %Basophils 0.4 % (0.0-1.0); %Eosinophils 4.6 % (0.0-10.0); %Lymphocytes 18.1 % (21.0-51.0); %Monocytes 12.8 % (0.0-10.0); %Neutrophils 64.1 % (42.0-75.0); Hemoglobin 10.3 g/dL (12.0-16.0); Mean Corpuscular HGB CONC 29.6 g/dL (32.0-36.0); Mean Corpuscular Hemoglobin 25.6 pg (27.0-31.0); Mean Corpuscular Volume 86.6 fl (81.0-99.0); Mean Platelet Volume 8.5 fL (7.4-10.4); Platelet Count 203 thou/uL (130-400); RBC Distribution Width 16.8 % (11.5-14.5); Red Blood Cell (RBC) Count 4.01 mill/uL (4.20-5.40); White Blood Cell (WBC) Count 6.4 thou/uL (4.8-10.8)
[2017-06-23 04:22] LABS: Anion Gap 9 mmol/L (10-20); BUN (Urea Nitrogen) 33 mg/dL (9.8-20.1); Calc. Creatinine Clearance 108 mL/min (70-130); Calcium 9.3 mg/dL (7.8-10.44); Carbon Dioxide 28 mmol/L (23-31); Chloride 109 mmol/L (98-107); Estimated GFR-MDRD 89; Glucose 105 mg/dL (83-110); Potassium 3.3 mmol/L (3.5-5.1); Sodium 143 mmol/L (136-145)
[2017-06-23 07:35] LABS: CO2 Tension 48.6 mmHg (35.0-45.0); O2 Tension (PaO2) 99.3 mmHg (80.0-100.0); pH, Arterial 7.41 (7.35-7.45)
[2017-06-23 07:36] LABS: Actual Bicarbonate (HCO3a) 29.8 mEq/L (22-26); Base Excess (BEa) 4.3 mEq/L (0 (+/-) 2.5); Calcium, Ionized 1.3 mmol/L (1.12-1.30); Carboxyhemoglobin (COHb) 2.5 gm% (0.0-3.0); Hematocrit-ABG 34.4 % (36.0-47.0); Hemoglobin (Hb) 10.4 g/dL (12.0-16.0); Potassium - ABG Lab 4.1 mmol/L (3.70-5.30); Puncture Site RRA
[2017-06-23] MEDS: Digoxin 0.25 MG TAB PO SCH (08:30)
[2017-06-23] MEDS: Pantoprazole 40 MG GRANULES PACKET PER TUBE SCH (08:30)
[2017-06-23] MEDS: Metoprolol Tartrate 25 MG TAB PO SCH ×2 (08:30→20:50)
[2017-06-23] MEDS: acetaZOLAMIDE Sodium 500 mg Vial IVP SCH (08:30)
[2017-06-23] MEDS: Sterile Water 10 ML VIAL IVP SCH (08:30)
--- NOTE | 2017-06-23 08:57 | PRG ---
DATE OF SERVICE: 06/23/2017 SERVICE: Pulmonary Medicine. INTERVAL HISTORY: The patient is doing fine from a respiratory standpoint. This morning, I find her awake and alert. She is cooperative. She is breathing comfortably on a spontaneous breathing trial . She denies any chest pain or shortness of breath currently. Otherwise, there has been no interval change to her condition. PHYSICAL EXAMINATION: VITAL SIGNS: Afebrile, pulse 78, blood pressure 110/57, respirations 13, saturation 98% on 31% FIO2 and a PEEP of 5. GENERAL: The patient is awake and alert. No apparent distress. LUNGS: Decent air entry. Crackles are still present. There is no prolonged expiratory phase or whe ezing present. HEART: Normal rate, regular. ABDOMEN: Soft, nontender, nondistended. Bowel sounds are positive. MUSCULOSKELETAL: No cyanosis or clubbing. There is trace pitting in the bilateral lower extremities , which is drastically improved. NEUROLOGIC: Grossly nonfocal. LABORATORY DATA: WBC 6.4, hemoglobin 10.3, platelets 203,000. PH 7.41, pCO2 of 48, pO2 99. Creatin ine 0.64, potassium 3.3, chloride 109, sodium 143. Bicarbonate is currently 28. BUN 33. Urine cult ure and blood culture, unremarkable. IMAGING: Chest x-ray demonstrates right-sided layering pleural effusion. Endotracheal tube remains in decent position, roughly 4 cm above the level of the leni. There is a significant rotation, whi ch obscures much of the right chest. Cardiomegaly is evident on this portable film. ASSESSMENT: 1. Acute hypoxic respiratory failure. 2. Neuromuscular weakness. 3. Acute on chronic diastolic heart failure. 4. Atrial fibrillation with rapid ventricular response, currently rate controlled. PLAN: I will give the patient a spontaneous breathing trial. If she meets criteria at the end of , extubation will be considered. Potassium will be replaced aggressively. We will suspend t he Diamox as the patient's acid base status has nearly returned to normal. I will back off on her La six as well. We will allow for her to reaccumulate fluid in her bloodstream before pushing her furth er. CRITICAL CARE TIME: 30 minutes.
[2017-06-23] MEDS ORDERED: Potassium Chloride 40 MEQ in Sodium Chloride 0.9% 250 ML 250 ML IVPB SCH (09:30)
[2017-06-23] MEDS ORDERED: Potassium Chloride 40 MEQ in Sodium Chloride 0.9% 250 ML 150 ML IVPB SCH (09:30)
[2017-06-23 11:05] LABS: pH, Arterial 7.25 (7.35-7.45)
[2017-06-23 11:06] LABS: Actual Bicarbonate (HCO3a) 31.3 mEq/L (22-26); Base Excess (BEa) 2.4 mEq/L (0 (+/-) 2.5); CO2 Tension 73.1 mmHg (35.0-45.0); Hematocrit-ABG 38.1 % (36.0-47.0); O2 Tension (PaO2) 88.9 mmHg (80.0-100.0)
[2017-06-23 11:07] LABS: ALV-art Gradient 33.625 (0-20); Calcium, Ionized 1.4 mmol/L (1.12-1.30); Carboxyhemoglobin (COHb) 2.5 gm% (0.0-3.0); Hemoglobin (Hb) 11.3 g/dL (12.0-16.0); Potassium - ABG Lab 4.4 mmol/L (3.70-5.30); Puncture Site RRA
[2017-06-23] MEDS: cefTRIAXone\\ROCEPHIN 2 GM in Sodium Chloride 0.9% 100 ML IVPB SCH (20:53)
[2017-06-24 05:30] LABS: Anion Gap 11 mmol/L (10-20); BUN (Urea Nitrogen) 31 mg/dL (9.8-20.1); Calc. Creatinine Clearance 102 mL/min (70-130); Calcium 9.9 mg/dL (7.8-10.44); Carbon Dioxide 27 mmol/L (23-31); Chloride 113 mmol/L (98-107); Estimated GFR-MDRD 84; Glucose 80 mg/dL (83-110); Magnesium 2.2 mg/dL (1.6-2.6); Phosphorus 3.4 mg/dL (2.3-4.7); Sodium 147 mmol/L (136-145)
--- NOTE | 2017-06-24 07:58 | PDOC.PN ---
- Subjective Encounter Start Date: 06/22/17 Encounter Start Time: 13:40 -: non-verbal, old records requested/rev Pt seen and examined, chart reviewed inits entirety, this is my first visit with this patient. Presented with AMS, SOB, acute hypoxemic and hypercapneic reps failure, intubated. On vent, though wide awake. weaning progressing, planning for extuabtion in AM i think No f/c, no n/V/D/C, no CP , no acute events. ROS not obtainable due to intubated status - Objective Resuscitation Status: Resuscitation Status FULL:Full Resuscitation MAR Reviewed: Yes Vital Signs & Weight: Vital Signs (12 hours) Temp Pulse Resp Pulse Ox 06/24/17 07:11 111 H 23 H 96 06/24/17 06:00 98.8 F 06/24/17 03:28 93 25 H 99 06/23/17 23:00 98.7 F 06/23/17 22:40 98 29 H 100 Weight Admit Weight 246 lb 14.884 oz Weight 214 lb 1.102 oz Most Recent Monitor Data Heart Rate from ECG 80 NIBP 90/50 NIBP BP-Mean 67 Respiration from ECG 24 SpO2 97 I&O: 06/23/17 06/24/17 06/25/17 06:59 06:59 06:59 Intake Total 1987 683 Output Total 2400 1500 Balance -413 -817 Result Diagrams: 06/23/17 03:29 06/24/17 05:05 Radiology Reviewed by me: Yes EKG Reviewed by me: Yes Phys Exam - Physical Examination Constitutional: NAD HEENT: PERRLA, moist MMs, sclera anicteric, oral pharynx no lesions oral ETT in place Neck: no nodes, no JVD, supple, full ROM coarse bilaterla breath sounds, post rales Cardiovascular: RRR, no significant murmur 3/6 HSM at apex Gastrointestinal: soft, non-tender, no distention, positive bowel sounds Musculoskeletal: edema present LUE paretic, global severe weakness Lymphatic: no nodes Skin: no rash, normal turgor, cap refill <2 seconds Dx/Plan (1) Acute hypoxemic respiratory failure Code(s): J96.01 - ACUTE RESPIRATORY FAILURE WITH HYPOXIA Status: Acute (2) Acute hypercapnic respiratory failure Code(s): J96.02 - ACUTE RESPIRATORY FAILURE WITH HYPERCAPNIA Status: Acute (3) Acute on chronic diastolic CHF (congestive heart failure) Code(s): I50.33 - ACUTE ON CHRONIC DIASTOLIC (CONGESTIVE) HEART FAILURE Status : Acute (4) Metabolic encephalopathy Code(s): G93.41 - METABOLIC ENCEPHALOPATHY Status: Acute (5) NEEMA (acute kidney injury) Code(s): N17.9 - ACUTE KIDNEY FAILURE, UNSPECIFIED Status: Resolved (6) Atrial fibrillation Code(s): I48.91 - UNSPECIFIED ATRIAL FIBRILLATION Status: Chronic Qualifiers: Atrial fibrillation type: chronic Qualified Code(s): I48.2 - Chronic atrial fibrillation - Plan cont current plan of care, continue antibiotics, PT/OT, respiratory therapy * . wean vent per pulm, appreciate their asistance. continue diuresis
--- NOTE | 2017-06-24 08:05 | PDOC.PN ---
- Subjective Encounter Start Date: 06/23/17 Encounter Start Time: 15:20 -: non-verbal Pt extubated earlier this AM, tolerated CPAP for 2 hours prior. became obtunded , ABG with PCO2 78, placedon BiPAP. poor tidal volume despite pressure 16/7. pt not waking. repeat ABG impending. DIL at bedside, stated pt wouldnot want this, fmaily deciding at present whether to re-intubate or not No overnight events reported ROS not obtainable - Objective Resuscitation Status: Resuscitation Status FULL:Full Resuscitation MAR Reviewed: Yes Vital Signs & Weight: Vital Signs (12 hours) Temp Pulse Resp Pulse Ox 06/24/17 07:11 111 H 23 H 96 06/24/17 06:00 98.8 F 06/24/17 03:28 93 25 H 99 06/23/17 23:00 98.7 F 06/23/17 22:40 98 29 H 100 Weight Admit Weight 246 lb 14.884 oz Weight 214 lb 1.102 oz Most Recent Monitor Data Heart Rate from ECG 80 NIBP 90/50 NIBP BP-Mean 67 Respiration from ECG 24 SpO2 97 I&O: 06/23/17 06/24/17 06/25/17 06:59 06:59 06:59 Intake Total 1987 683 Output Total 2400 1500 Balance -413 -817 Result Diagrams: 06/23/17 03:29 06/24/17 05:05 Phys Exam - Physical Examination mod resp ditress, BiPAP on, not responsive HEENT: PERRLA, sclera anicteric mucous membrane dry Neck: no nodes, supple, full ROM +JVD Respiratory: no wheezing, no rhonchi, clear to auscultation bilateral irregular, rate controlled Gastrointestinal: soft, non-tender, no distention, positive bowel sounds Musculoskeletal: no edema, pulses present Lymphatic: no nodes Skin: no rash, normal turgor, cap refill <2 seconds Dx/Plan (1) Acute hypoxemic respiratory failure Code(s): J96.01 - ACUTE RESPIRATORY FAILURE WITH HYPOXIA Status: Acute Comment: sats okay on 23% FiO2 BiPAP (2) Acute hypercapnic respiratory failure Code(s): J96.02 - ACUTE RESPIRATORY FAILURE WITH HYPERCAPNIA Status: Acute Comment: re-occurred off of vent, now on biPAP. not imrpving much, but loosk comfortable. follow upon ABG (3) Acute on chronic diastolic CHF (congestive heart failure) Code(s): I50.33 - ACUTE ON CHRONIC DIASTOLIC (CONGESTIVE) HEART FAILURE Status : Acute Comment: edema markedly improved, continue diuresis (4) Metabolic encephalopathy Code(s): G93.41 - METABOLIC ENCEPHALOPATHY Status: Acute (5) NEEMA (acute kidney injury) Code(s): N17.9 - ACUTE KIDNEY FAILURE, UNSPECIFIED Status: Resolved (6) Atrial fibrillation Code(s): I48.91 - UNSPECIFIED ATRIAL FIBRILLATION Status: Chronic Qualifiers: Atrial fibrillation type: chronic Qualified Code(s): I48.2 - Chronic atrial fibrillation - Plan cont current plan of care, plan discussed w/ family, PT/OT, respiratory therapy * .
[2017-06-24] MEDS: Metoprolol Tartrate 25 MG TAB PO SCH (09:00)
[2017-06-24] MEDS: Digoxin 0.25 MG TAB PO SCH (09:00)
[2017-06-24] MEDS ORDERED: Digoxin 0.5 MG/2 ML AMP SLOW IVP SCH (11:00)
[2017-06-24] MEDS: Dextrose 5% in Water 1,000 ML IV SCH (12:42)
[2017-06-24] MEDS: Diltiazem 125 MG in Sodium Chloride 0.9% 100 ML IVPB SCH (13:30)
--- NOTE | 2017-06-24 14:07 | PDOC.PN ---
- Subjective Encounter Start Date: 06/24/17 Encounter Start Time: 10:30 Pt remains on BiPAP, Vt much better at 600-800. pt awakens with verbal stimuli , but otherwise not much more alert than yesterday. No f/c, no N/V/D/C. Family meeting at [address] Smith to determine [employer] customer service plans and goals, DNR status ROS not obtainable - Objective Resuscitation Status: Resuscitation Status FULL:Full Resuscitation MAR Reviewed: Yes Vital Signs & Weight: Vital Signs (12 hours) Temp Pulse Resp Pulse Ox 06/24/17 12:51 107 H 21 H 96 06/24/17 12:42 104 H 06/24/17 12:00 98.6 F 06/24/17 10:37 95 22 H 99 06/24/17 09:00 95 06/24/17 08:00 97.8 F 06/24/17 07:11 111 H 23 H 96 06/24/17 06:00 98.8 F 06/24/17 03:28 93 25 H 99 Weight Admit Weight 246 lb 14.884 oz Weight 214 lb 1.102 oz Most Recent Monitor Data Heart Rate from ECG 105 NIBP 158/79 NIBP BP-Mean 95 Respiration from ECG 26 SpO2 100 I&O: 06/23/17 06/24/17 06/25/17 06:59 06:59 06:59 Intake Total 1987 683 63 Output Total 2400 1500 240 [facility] -413 -817 -177 Result Diagrams: 06/23/17 03:29 06/24/17 05:05 Radiology Reviewed by me: Yes EKG Reviewed by me: Yes Phys Exam - Physical Examination Constitutional: NAD HEENT: PERRLA, sclera anicteric, oral pharynx no lesions Neck: no nodes, no JVD, supple Respiratory: no wheezing, no rales, no rhonchi, clear to auscultation bilateral good air movement anteriorly Cardiovascular: RRR, no significant murmur, no rub Gastrointestinal: soft, non-tender, no distention, positive bowel sounds Musculoskeletal: pulses present, edema present edema better Lymphatic: no nodes Skin: no rash, normal turgor, cap refill <2 seconds Dx/Plan (1) Acute hypoxemic respiratory failure Code(s): J96.01 - ACUTE RESPIRATORY FAILURE WITH HYPOXIA Status: Acute Comment: sats 100% okay on 27% FiO2 BiPAP 10/09 (2) Acute hypercapnic respiratory failure Code(s): J96.02 - ACUTE RESPIRATORY FAILURE WITH HYPERCAPNIA Status: Acute Comment: re-occurred off of vent, now on biPAP. not improving much, but looks comfortable. follow up on pulm recs (3) Acute on chronic diastolic CHF (congestive heart failure) Code(s): I50.33 - ACUTE ON CHRONIC DIASTOLIC (CONGESTIVE) HEART FAILURE Status : Acute Comment: edema markedly improved, continue diuresis (4) Metabolic encephalopathy Code(s): G93.41 - METABOLIC ENCEPHALOPATHY Status: Acute (5) NEEMA (acute kidney injury) Code(s): N17.9 - ACUTE KIDNEY FAILURE, UNSPECIFIED Status: Resolved (6) Atrial fibrillation Code(s): I48.91 - UNSPECIFIED ATRIAL FIBRILLATION Status: Chronic Qualifiers: Atrial fibrillation type: chronic Qualified Code(s): I48.2 - Chronic atrial fibrillation - Plan cont current plan of care, plan discussed w/ family, continue antibiotics, PT/OT , respiratory therapy * .
[2017-06-24] MEDS: cefTRIAXone\\ROCEPHIN 2 GM in Sodium Chloride 0.9% 100 ML IVPB SCH (21:13)
[2017-06-25 05:21] LABS: Anion Gap 11 mmol/L (10-20); BUN (Urea Nitrogen) 31 mg/dL (9.8-20.1); Calc. Creatinine Clearance 90 mL/min (70-130); Calcium 9.7 mg/dL (7.8-10.44); Carbon Dioxide 28 mmol/L (23-31); Chloride 111 mmol/L (98-107); Estimated GFR-MDRD 74; Glucose 168 mg/dL (83-110); Potassium 4.3 mmol/L (3.5-5.1); Sodium 146 mmol/L (136-145)
[2017-06-25] MEDS: Dextrose 5 %-0.45 % NaCl 1,000 ML IV SCH ×2 (09:20→20:57)
--- NOTE | 2017-06-25 09:45 | EEG ---
Referring Physician: DR. Galilea PRAKASH EEG # [id number] TEST TYPE: ROUTINE PORTABLE INPATIENT REPORT: AN EEG USING THE INTERNATIONAL TEN-TWENTY SYSTEM OF ELECTRODE PLACEMENT WAS PERFORMED. DESCRIPTION OF THE RECORD: The best waking background is an 8-9 hertz occipitally dominant alpha frequency. The patient appeared to be a bit drowsy during the study, but no sleep was seen. Photic stimulation was unremarkable. No epileptiform features were present. IMPRESSION: THIS IS A NORMAL AWAKE AND DROWSY EEG. Research Group Director: TOAN Cardiology Nurse Practitioner: EEG.DIONNE LEMUS
[2017-06-25] MEDS: Digoxin 0.5 MG/2 ML AMP SLOW IVP SCH (09:53)
[2017-06-25 11:48] VITALS: BP 146/80
--- NOTE | 2017-06-25 12:08 | RAD ---
RADIOGRAPH ABDOMEN ONE VIEW: Date: 06-25-17 Time: 10:05 a.m. History: 82-year-old female for confirmation of Dobbhoff tube position. Technique: Actually, two images are submitted: Box Feeder KUB followed by repeat KUB after injection of 15 ml of Karma rografin. FINDINGS: Dobbhoff tube distal tip is either in the distal stomach or duodenal bulb. There is a small amount of contrast material in the distal stomach and questionably in the duodenum. There is a right pleural e ffusion. Cardiac shadow is shifted to the right. There is opacification of the retrocardiac portion o f the right lung base. IMPRESSION: Dobbhoff feeding tube distal tip either at distal stomach or duodenal bulb. POS: DESIREE
--- NOTE | 2017-06-25 12:30 | PRG ---
DATE OF SERVICE: 06/25/2017 A 35 minutes critical care time. SUBJECTIVE: The patient was extubated on Sunday that quickly progressed to the point where she had to be on BiPAP and is still requiring that most of the day. PHYSICAL EXAMINATION: VITAL SIGNS: Temperature 97.7, pulse 99, blood pressure 150/93. A 24-hour intake 1162, output 1175, weight 138 pounds. HEENT: Unremarkable. NECK: No JVD. LUNGS: Decreased breath sounds bilaterally. CARDIAC: S1 and S2 regular. ABDOMEN: Soft, nontender. EXTREMITIES: Trace edema. LABORATORY DATA: Sodium 146, potassium 4.3, chloride 111, CO2 28, BUN 31, creatinine 0.7, glucose 16 8. White blood cell count 6.4, hemoglobin 10, hematocrit 34.7, platelet count 203. ASSESSMENT: 1. Diastolic cardiac dysfunction. 2. Acute hypoxic respiratory failure requiring mechanical ventilation. 3. Severe neuromuscular weakness. 4. Chronic kidney disease. 5. Atrial fibrillation. PLAN: 1. I will go ahead and start back on low dose IV fluids as she is a little dry. 2. Place the Dobbhoff tube for purpose of starting tube feeds. 3. Decrease pressure on BiPAP. 4. Up in chair as tolerated. 5. We will try to communicate with family. The patient's prognosis is poor and the only thing we ca n do beyond this would be to reintubate, place tracheostomy and feeding tube.
[2017-06-25] MEDS: Diltiazem 125 MG in Sodium Chloride 0.9% 100 ML IVPB SCH (14:54)
--- NOTE | 2017-06-25 16:28 | PDOC.PN ---
- Subjective Encounter Start Date: 06/25/17 Encounter Start Time: 16:26 -: non-verbal Patient seen and evaluated. She nonverbal at this time. She seems lethargic. Per nurse, Bipap dependent and weak. - Objective Resuscitation Status: Resuscitation Status FULL:Full Resuscitation MAR Reviewed: Yes Vital Signs & Weight: Vital Signs (12 hours) Temp Pulse Pulse Pulse Resp BP BP 06/25/17 14:58 98 06/25/17 13:32 06/25/17 13:04 90 06/25/17 10:59 73 83 146/80 H 158/73 H 06/25/17 10:22 91 06/25/17 09:53 86 06/25/17 09:14 91 23 H 06/25/17 08:00 98.4 F 91 22 H 06/25/17 06:59 88 24 H Pulse Ox Pulse Ox Pulse Ox 06/25/17 14:58 06/25/17 13:32 94 L 06/25/17 13:04 06/25/17 10:59 95 92 L 06/25/17 10:22 06/25/17 09:53 06/25/17 09:14 97 06/25/17 08:00 96 06/25/17 06:59 92 L Weight Admit Weight 246 lb 14.884 oz Weight 213 lb 6.519 oz Most Recent Monitor Data Heart Rate from ECG 94 NIBP 173/87 NIBP BP-Mean 124 Respiration from ECG 27 SpO2 85 I&O: 06/24/17 06/25/17 06/26/17 06:59 06:59 06:59 Intake Total 683 1062 125 Output Total 1500 1175 175 Balance -817 -113 -50 Result Diagrams: 06/23/17 03:29 06/25/17 04:25 Radiology Reviewed by me: Yes EKG Reviewed by me: Yes Phys Exam - Physical Examination Mild distress due to SOB HEENT: PERRLA BiPAP mask on. NG tube present Neck: no nodes, no JVD, full ROM tachypnea without audible wheezing or ronchi. Chest is symmetric Cardiovascular: no significant murmur, no rub Tachycardia Gastrointestinal: soft, non-tender, no distention, positive bowel sounds Musculoskeletal: no edema, pulses present Lethargy. 3-4/5 strenght in alll extremities Deviation from normal: unable to evaluate due to encephalopathy Skin: cap refill <2 seconds Deviation from normal: General pallor Dx/Plan (1) Acute hypoxemic respiratory failure Code(s): J96.01 - ACUTE RESPIRATORY FAILURE WITH HYPOXIA Status: Acute Plan: Continue oxygen support and advance airway if needed. Extubated 48 hours ago now BiPAP dependent. Critical care managing. (2) Acute hypercapnic respiratory failure Code(s): J96.02 - ACUTE RESPIRATORY FAILURE WITH HYPERCAPNIA Status: Acute Plan: See above. (3) Neuromuscular weakness Code(s): G70.9 - MYONEURAL DISORDER, UNSPECIFIED Status: Acute Plan: Due to critical illness. PT when respiratory status improves. (4) Obesity (BMI 30-39.9) Code(s): E66.9 - OBESITY, UNSPECIFIED Status: Chronic (5) Acute hypernatremia Code(s): E87.0 - HYPEROSMOLALITY AND HYPERNATREMIA Status: Acute Plan: Maybe multifactorial (sodium bicarb + IV drips). Monitor. Free water per NG tube. (6) Acute on chronic diastolic CHF (congestive heart failure) Code(s): I50.33 - ACUTE ON CHRONIC DIASTOLIC (CONGESTIVE) HEART FAILURE Status : Acute Plan: Continue CHF protocol. Improving (7) Metabolic encephalopathy Code(s): G93.41 - METABOLIC ENCEPHALOPATHY Status: Acute Plan: Still lethargic. Continue neurochecks (8) NEEMA (acute kidney injury) Code(s): N17.9 - ACUTE KIDNEY FAILURE, UNSPECIFIED Status: Resolved (9) Atrial fibrillation Code(s): I48.91 - UNSPECIFIED ATRIAL FIBRILLATION Status: Chronic Qualifiers: Atrial fibrillation type: chronic Qualified Code(s): I48.2 - Chronic atrial fibrillation - Plan cont current plan of care Code; Full Core; Heparin, PPI Clinical status; serious Prog; guarded Disp; ICU Espected discharge; to be determined Total time spent; 35 minutes
[2017-06-25] MEDS ORDERED: Pancrelipase DR 12000 1 CAP FS PRN (16:30)
[2017-06-25] MEDS ORDERED: Sodium Bicarbonate Tab 325 MG TAB PER TUBE PRN (16:30)
[2017-06-25] MEDS ORDERED: Iopamidol 300 61% 30 ML VIAL ONE (17:53)
[2017-06-25] MEDS: Dextrose 5% in Water 1,000 ML IV SCH (20:02)
[2017-06-25] MEDS: Heparin 5,000 UNITS/ML VIAL SC SCH (20:57)
--- NOTE | 2017-06-26 00:19 | PRG ---
DATE OF SERVICE: 06/24/2017 SERVICE: Pulmonary Medicine. INTERVAL HISTORY: Patient is doing fairly well from a laboratory standpoint. That being said, mentation aponte, she remains fairly sedated or fairly sleepy. Furthermore, she demonstrates extraordinary weakness. She does not have any complaints of chest pain or shortness of breath. She is moving both upper extremities and both lower extremities. PHYSICAL EXAMINATION: VITAL SIGNS: Afebrile, pulse 66, blood pressure 120/72, respirations 20, saturation 93% on 27% FiO2 via BiPAP. HEENT: Normocephalic, atraumatic. Sclerae are white. Conjunctiva pink. Oral mucosa is dry. LUNGS: Decent air entry. I do not appreciate wheezing, rhonchi or crackles. HEART: Normal rate, regular. ABDOMEN: Soft, nontender, nondistended. Bowel sounds are positive. MUSCULOSKELETAL: No cyanosis or clubbing. The previous noted edema is gone. GENITOURINARY: Umanzor catheter in place. NEUROLOGIC: Grossly nonfocal. LABORATORIES: WBC 10.0, hemoglobin 9.2 and stable, platelets 76,000 and up trending gently. INR 1.5. Sodium 147, chloride 113. Both of these are up trending. Potassium 4.0. BUN 31 and down trending, creatinine is stable at 0.67. Magnesium and phosphorus fall within the normal limits. Blood culture and urine culture remained negative. ASSESSMENT: 1. Acute hypoxic respiratory failure. 2. Critical Care weakness. 3. Delirium with sedated profile. 4. Acute on chronic diastolic heart failure. 5. Aortic regurgitation, moderate. 6. Atrial fibrillation with right ventricular response, currently rate controlled. DISCUSSION AND PLAN: I am going to sit her up as well as possible on the BiPAP. We will start introducing BiPAP breaks 3 times daily and increase as tolerated. She has got multiple barriers are getting better. The biggest one currently is for weakness, and delirium. As such, we cannot find a way to keep her active despite the fact that she is poorly interactive. I do believe the respiratory and metabolic components are resolved. We will work on getting her into a chair couple times daily and other physical therapy features. Physical Therapy will come by and visit with the patient on a daily basis. I will change all of her medications over to IV until she can tolerate p.o. I had a long discussion with the family today. They were trying to decide what to do in the event if patient gets worse requires re-intubation. If that occurred, tracheostomy would be required if we do not transition over to comfort care only. Four of 6 siblings are here today and they are going to discuss how to move forward with this issue if it comes up. In the meantime, we are doing everything we can to make the patient whole again. Of note, before she became ill, she was actually able to take care of her own household, go to the store without assistance, and go to the physician's office. Critical care time: 30 minutes. MARIAH
[2017-06-26 03:35] LABS: Hemoglobin 10.9 g/dL (12.0-16.0); Mean Corpuscular HGB CONC 29.9 g/dL (32.0-36.0); Mean Corpuscular Hemoglobin 26.5 pg (27.0-31.0); Mean Corpuscular Volume 88.7 fl (81.0-99.0); Mean Platelet Volume 8.7 fL (7.4-10.4); Platelet Count 254 thou/uL (130-400); RBC Distribution Width 16.9 % (11.5-14.5); Red Blood Cell (RBC) Count 4.11 mill/uL (4.20-5.40); White Blood Cell (WBC) Count 11.5 thou/uL (4.8-10.8)
[2017-06-26 03:51] LABS: Anion Gap 10 mmol/L (10-20); BUN (Urea Nitrogen) 31 mg/dL (9.8-20.1); Calc. Creatinine Clearance 99 mL/min (70-130); Calcium 9.8 mg/dL (7.8-10.44); Carbon Dioxide 30 mmol/L (23-31); Chloride 112 mmol/L (98-107); Estimated GFR-MDRD 83; Glucose 154 mg/dL (83-110); Sodium 148 mmol/L (136-145)
[2017-06-26 06:20] VITALS: BMI 40.2
--- NOTE | 2017-06-26 08:26 | PRG ---
DATE OF SERVICE: 06/26/2017 Thirty-five minutes critical care time. The patient continues to require noninvasive ventilation around the clock. She is very weak and has a hard time communicating. PHYSICAL EXAMINATION: VITAL SIGNS: Temperature is 98.2, pulse 108, blood pressure 155/71. 24 hour intake 2534, output 119 5, weight 220 pounds. HEENT: Pupils react. Sclerae anicteric. Oropharynx clear. NECK: No JVD. LUNGS: Coarse breath sounds. CARDIAC: S1 and S2 regular. ABDOMEN: Soft, obese, nontender. EXTREMITIES: Trace edema throughout. LABORATORY DATA: Sodium 140, potassium 4.0, chloride 112, CO2 30, BUN 31, creatinine 0.6, glucose 15 4. White blood cell count 11.5, hematocrit 36.4, platelet count 254. ASSESSMENT: 1. Diastolic cardiac dysfunction. 2. Acute hypoxic respiratory failure requiring mechanical ventilation. 3. Severe neuromuscular weakness. 4. Chronic kidney disease. 5. Atrial fibrillation. PLAN: I spoke with the patient's power of workers compensation attorney, who is her daughter, Lilian Solorzano. I told her t hat I do not feel as if her mother was getting better and I personally supported going the route of p alliative care. I asked her specifically what she thought her mom would want if she can make decisio ns for herself. She stated that her mom would not want to be on machines. Based on this, I have enc ouraged the family to meet and place a DNR on the chart. I will ask palliative care to meet with the family also. I would advocate converting to comfort care as soon as possible.
[2017-06-26] MEDS ORDERED: Pantoprazole 40 MG GRANULES PACKET PER TUBE SCH (09:00)
--- NOTE | 2017-06-26 09:41 | PRG ---
DATE OF SERVICE: 06/26/2017 I had a meeting at the bedside with the patient's daughter, Lilian Solorzano. She has spoken to her sibl ings. This daughter does have power of assistant prosecuting attorney. She has agreed to make her mom a DNR. I have aske d the Palliative Care Team to meet with the family to discuss further care.
[2017-06-26] MEDS: Digoxin 0.5 MG/2 ML AMP SLOW IVP SCH (09:46)
[2017-06-26] MEDS: Heparin 5,000 UNITS/ML VIAL SC SCH (09:46)
[2017-06-26] MEDS: Dextrose 5 %-0.45 % NaCl 1,000 ML IV SCH ×2 (10:09→13:08)
--- NOTE | 2017-06-26 15:38 | PDOC.PN ---
- Subjective Encounter Start Date: 06/26/17 Encounter Start Time: 15:46 Subjective: No acute events overnight - Objective Resuscitation Status: Resuscitation Status DNR:Do Not Resuscitate MAR Reviewed: Yes Vital Signs & Weight: Vital Signs (12 hours) Temp Pulse Resp Pulse Ox 06/26/17 14:24 96 06/26/17 12:33 78 06/26/17 12:00 98.3 F 06/26/17 10:35 84 06/26/17 09:46 80 06/26/17 08:00 98.5 F 78 23 H 92 L 06/26/17 06:51 80 06/26/17 04:00 98.2 F Weight Admit Weight 246 lb 14.884 oz Weight 220 lb 3.869 oz Most Recent Monitor Data Heart Rate from ECG 82 NIBP 152/80 NIBP BP-Mean 114 Respiration from ECG 20 SpO2 93 I&O: 06/25/17 06/26/17 06/27/17 06:59 06:59 06:59 Intake Total 1062 2534 Output Total 1175 1195 539 Balance -113 1339 -539 Result Diagrams: 06/26/17 03:15 06/26/17 03:15 Phys Exam - Physical Examination Constitutional: NAD HEENT: moist MMs, sclera anicteric, oral pharynx no lesions Neck: no JVD, supple, full ROM Respiratory: no wheezing, no rales, no rhonchi, clear to auscultation bilateral Cardiovascular: no significant murmur, irregular Gastrointestinal: soft, non-tender, no distention, positive bowel sounds Musculoskeletal: pulses present Skin: no rash, normal turgor Dx/Plan (1) Acute hypoxemic respiratory failure Code(s): J96.01 - ACUTE RESPIRATORY FAILURE WITH HYPOXIA Status: Acute Comment: Stable. Remains on bipap. (2) Acute on chronic diastolic CHF (congestive heart failure) Code(s): I50.33 - ACUTE ON CHRONIC DIASTOLIC (CONGESTIVE) HEART FAILURE Status : Acute Comment: Improved following diuresis (3) Metabolic encephalopathy Code(s): G93.41 - METABOLIC ENCEPHALOPATHY Status: Acute (4) Neuromuscular weakness Code(s): G70.9 - MYONEURAL DISORDER, UNSPECIFIED Status: Acute (5) Obesity (BMI 30-39.9) Code(s): E66.9 - OBESITY, UNSPECIFIED Status: Chronic (6) Atrial fibrillation Code(s): I48.91 - UNSPECIFIED ATRIAL FIBRILLATION Status: Chronic Qualifiers: Atrial fibrillation type: chronic Qualified Code(s): I48.2 - Chronic atrial fibrillation - Plan cont current plan of care, plan discussed w/ family, respiratory therapy, DVT proph w/heparin Clinically unchabged -: Palliative care consulted and will meet with family -: Continue current management. * . Review of Systems - Medications/Allergies Allergies/Adverse Reactions: Allergies Allergy/AdvReac Type Severity Reaction Status Date / Time hydrocodone AdvReac Verified 06/16/17 21:52 Medications: Current Medications Acetaminophen (Tylenol) 650 mg MI Q4H PRN PRN Reason: Headache/Fever or Mild Pain Albuterol/Ipratropium (Duoneb) 3 ml NEB [id number]-ON [facility] Last Admin: 06/26/17 12:32 Dose: 3 ml Lipase/Protease/Amylase ([place] [id number]) 1 cap FS .PER PROTOCOL PRN PRN Reason: TUBE OCCLUSION PROTOCOL Clonidine (Catapres) 0.1 mg PO Q4H PRN PRN Reason: Systolic BP > 180 Digoxin (Lanoxin) 0.25 mg SLOW IVP DAILY [facility] Last Admin: 06/26/17 09:46 Dose: 0.25 mg Heparin Sodium (Porcine) (Heparin) 5,000 units SC BID [facility] Last Admin: 06/26/17 09:46 Dose: 5,000 units Hydralazine HCl (Apresoline) 10 mg SLOW IVP Q4H PRN PRN Reason: Systolic BP > 180 Potassium Chloride 40 meq/ (Sodium Chloride) 270 mls @ 135 mls/hr IVPB ASDIR PRN PRN Reason: FOR SERUM K+ 2.5 - 3.5 Potassium Chloride 40 meq/ (Device) 100 mls @ 50 mls/hr IVPB ASDIR PRN PRN Reason: FOR SERUM K+ 2.5 - 3.5 Magnesium Sulfate 1 gm/ Sodium (Chloride) 102 mls @ 102 mls/hr IV PRN PRN PRN Reason: MAG LEVEL 1.4 - 2.0 Magnesium Sulfate 2 gm/ Device 100 mls @ 100 mls/hr IVPB ASDIR PRN PRN Reason: MAGNESIUM < 1.4 Potassium Phosphate 9 mmol/ (Sodium Chloride) 103 mls @ 25.75 mls/hr IVPB ASDIR PRN PRN Reason: Phosphate 1.0-1.8 Potassium Phosphate 12 mmol/ (Sodium Chloride) 254 mls @ 63.5 mls/hr IV ASDIR PRN PRN Reason: Serum phosphate 0.5-0.9 Potassium Phosphate 15 mmol/ (Sodium Chloride) 255 mls @ 63.75 mls/hr IV ASDIR PRN PRN Reason: Serum Phos < 0.5 Dextrose/Sodium Chloride (D5 1/2 Ns) 1,000 mls @ 50 mls/hr IV .Q20H [facility] Last Admin: 06/26/17 13:08 Dose: 1,000 mls Magnesium Oxide (Magnesium Oxide) 400 mg PO BIDPRN PRN PRN Reason: FOR SERUM MAG 1.4 - 2.0 Magnesium Oxide (Magnesium Oxide) 800 mg PO PRN PRN PRN Reason: FOR SERUM MAG < 1.4 Methylprednisolone Sodium Succinate (Solu-Medrol) 40 mg IVP DAILY [facility] Last Admin: 06/26/17 09:47 Dose: 40 mg Metoprolol Tartrate (Lopressor) 5 mg IVP Q6H PRN PRN Reason: HR > 110 Last Admin: 06/20/17 08:47 Dose: 5 mg Miscellaneous Medication (Phos-Nak) 1 pkt PO TIDPRN PRN PRN Reason: FOR PHOS LEVEL 1.0 - 1.8 Miscellaneous Medication (Phos-Nak) 2 pkt PO TIDPRN PRN PRN Reason: FOR PHOS LEVEL 0.5 - 1.0 Ondansetron HCl (Zofran Odt) 4 mg PO Q6H PRN PRN Reason: Nausea/Vomiting Ondansetron HCl (Zofran) 4 mg IVP Q6H PRN PRN Reason: Nausea/Vomiting Pantoprazole Sodium (Protonix) 40 mg PER TUBE DAILY [facility] Last Admin: 06/26/17 09:47 Dose: 40 mg Potassium Chloride (K-Dur) 40 meq PO ASDIR PRN PRN Reason: FOR SERUM K+ 2.5 - 3.5 Potassium Chloride (Klor-Con) 40 meq PER TUBE ASDIR PRN PRN Reason: FOR SERUM K+ 2.5-3.5 Last Admin: 06/23/17 06:33 Dose: 40 meq Sodium Bicarbonate (Bicarbonate, Sodium) 650 mg PER TUBE .PER PROTOCOL PRN PRN Reason: ENTERAL TUBE OCCLUSION Sodium Chloride (Flush - Normal Saline) 10 ml IVF Q12HR [facility] Last Admin: 06/26/17 09:47 Dose: 10 ml Sodium Chloride (Flush - Normal Saline) 10 ml IVF PRN PRN PRN Reason: Saline Flush Last Admin: 06/24/17 20:50 Dose: 10 ml
[2017-06-26] MEDS ORDERED: Lorazepam 2 MG/ML VIAL SLOW IVP PRN (18:13)
[2017-06-26 21:42] VITALS: TEMP 98.6
--- NOTE | 2017-06-27 14:49 | DIS ---
DATE OF ADMISSION: 06/16/2017 DATE OF DISCHARGE: 06/26/2017 DISCHARGE DIAGNOSES: Acute hypercapnic respiratory failure, acute diastolic congestive heart failure exacerbation, acute encephalopathy, acute kidney injury , hyperkalemia, chronic atrial fibrillation with variable rate. HISTORY OF PRESENT ILLNESS/HOSPITAL COURSE: An 82-year-old female initially admitted to [facility] after presenting with shortness of breath , fatigue, and CHF exacerbation on 06/13/2017. Apparently, she was admitted under Dr. Perez's service and treated for CHF. She received IV Lasix 40 mg q.12 hours and was placed under fluid restriction of 1500 mL daily. According to the patient's family members at bedside, she became increasingly confused; nonetheless, unable to follow any specific commands but reported increasing lower extremity swelling and a 40-pound weight gain over approximately 3 weeks with note to her admission in [place]. She also reports that she does not take care of herself, but has been caring for her ailing spouse of at the same time frame. The patient apparently has been taking Lasix twice a day up to 3 times a day with no specific improvement in her swelling and had increased fatigue, decreased exercise and activity tolerance for the need to take multiple breaks while doing chores and assisting her spouse. She also has a history of atrial fibrillation as well. Her prior CHF with last 2D echo in 2016 showed EF of 50-55% with suspected diastolic dysfunction. Family is suspicious that she has been noncompliant with her medication and dietary regimen. History was obtained exclusively after review of EMR in the emergency room, discussion with ER attending, family members including the patient's daughter at the bedside. At the emergency room, she became increasingly somnolent and hypoxia requiring mechanical ventilation after ABG showed a pH of 7.1 and pCO2 of 102. She was placed on SIMV given oxygen supplementation with repeat pH after mechanical ventilation of 7.51. She also received multiple medications including sodium bicarbonate, fentanyl, propofol, aspirin, Lasix, etomidate and rocuronium. No specific history of fever, exposure history, recent fall, injury or head trauma. She was stabilized in the emergency room and transferred to the Hospitalist Service for further management. Pertinent findings include sodium 134, potassium 5.4, chloride of 95, carbon dioxide 26, anion gap of 18, BUN of 49, creatinine 1.58 with a GFR of 31. LFTs were within normal limits. Initial troponin was 0.044. BNP was 1215, previously noted to be 946. On 06/15/2017, CBC was largely unremarkable. ABG on admission showed as described above. Urinalysis showed positive protein, moderate blood with trace leukocyte esterase 21-50 rbc's per high power field and 11-20 wbc's per high power field. CT of the brain without contrast dated 06/16/2017 showed no acute intracranial process. Portable chest x-ray shows suboptimal exam due to patient rotation. There was questionable right lower lung zone density. ET and NG tube are in place. EKG on 06/16/2017 showed atrial fibrillation with rates in the 105 region. There was no acute ST-T segment changes noted. An assessment of acute hypercapnic respiratory failure was made and the patient was admitted to the Critical Care Unit. Mechanical ventilation was continued with SIMV. Pulmonary was consulted and managed the patient while in hospital. For her CHF, she was continued on IV furosemide 40 mg b.i.d., and a TTE was ordered and her acute encephalopathy was deemed to have multiple factors including her hypercapnia and she was continued on nephrotoxic agents. Her acute kidney injury was likely due to cardiorenal syndrome and she was placed on furosemide and monitored. She was eventually weaned off mechanical ventilation and placed on BiPAP; however, her mental status is not improved considerable. Family discussion was then had with the patient's family and palliative care and pulmonary and decision was made to send her to inpatient hospice. DISCHARGE DISPOSITION: Patient discharged to hospice. PHYSICAL EXAMINATION: VITAL SIGNS: She was examined on the day of discharge, blood pressure 130/62, oxygen saturation 96% on BiPAP, respiratory rate 19, pulse 75, temperature 98.6 degrees Fahrenheit. GENERAL: Not in acute distress on BiPAP, not able to answer questions or open her eyes spontaneously. HEENT: Normocephalic, atraumatic, not pale, anicteric. Moist mucous membranes. PERRLA. CARDIOVASCULAR: Irregular rhythm but regular rate. S1 and S2 with no murmurs, rubs or gallops. RESPIRATORY: Reduced breath sounds bilaterally. ABDOMEN: Soft, nontender, nondistended. Bowel sounds normoactive. No hepatosplenomegaly. NEUROLOGIC: Unable to cooperate with the exam as the patient is not awake or responding to questions. SKIN: No rash. Normal turgor. DISCHARGE FINAL DIAGNOSES: Acute hypoxemic respiratory failure with hypercapnia , acute on chronic diastolic congestive heart failure, metabolic encephalopathy neuromuscular weakness, obesity, atrial fibrillation. IMAGING: Abdomen x-ray, Dobhoff feeding tube with distal stomach or duodenal bulb. Chest x-ray, brain CT. Consult Cardiology and Neurology. CONDITION ON DISCHARGE: Serious. PROCEDURES: Echocardiogram: EF 50-55% atrial fibrillation with RVR, PA systolic pressure estimated at 42 mmHg. No aortic stenosis, at least moderate aortic insufficiency, but cannot be precise as the patient was very tachycardic. Electrophysiology procedure showed normal awake and drowsy EEG. CARE GOALS: The patient is discharged to the hospice. Activity as tolerated. DISCHARGE TIME: Sixty five minutes including chart review and documentation. MARIAH
--- NOTE | 2017-07-22 00:02 | EKG ---
Test Reason : Blood Pressure : / mmHG Vent. Rate : 112 BPM Atrial Rate : 133 BPM P-R Int : 000 ms QRS Dur : 094 ms QT Int : 318 ms P-R-T Axes : 000 021 182 degrees QTc Int : 434 ms Atrial fibrillation with rapid ventricular response Nonspecific T wave abnormality , probably digitalis effect Abnormal ECG Confirmed by JA WILCOX ([id number]), technical writer and editor JENNY PACHECO ([id number]) on 07/22/2017 12:01:42 AM Referred By: Confirmed By:JA WILCOX
== END 2017-06-26 21:55 | disposition hospice, inpatient (51) | DRG 207 ==
LOC: ERS 16:17 → CCU 18:49
PROVIDERS: ADMIT Family Medicine; ATTEND Family Medicine
PROC: 5A1955Z Respiratory Ventilation, Greater than 96 Consecutive Hours (ICD-10-PCS; principal; 2017-06-16)
PROC: 0BH17EZ Insertion of Endotracheal Airway into Trachea, Via Natural or Artificial Opening (ICD-10-PCS; 2017-06-16)
PROC: 5A09357 Assistance with Respiratory Ventilation, Less than 24 Consecutive Hours, Continuous Positive Airway Pressure (ICD-10-PCS; 2017-06-24)
PROC: 5A09457 Assistance with Respiratory Ventilation, 24-96 Consecutive Hours, Continuous Positive Airway Pressure (ICD-10-PCS; 2017-06-25)
PROC: 0DH67UZ Insertion of Feeding Device into Stomach, Via Natural or Artificial Opening (ICD-10-PCS; 2017-06-25)
DX: J96.02 Acute respiratory failure with hypercapnia (principal); A41.50 Gram-negative sepsis, unspecified; G93.41 Metabolic encephalopathy; I50.33 Acute on chronic diastolic (congestive) heart failure; E87.4 Mixed disorder of acid-base balance; N17.9 Acute kidney failure, unspecified; I13.0 Hypertensive heart and chronic kidney disease with heart failure and stage 1 through stage 4 chronic kidney disease, or unspecified chronic kidney disease; Z68.41 Body mass index [BMI] 40.0-44.9, adult; E87.5 Hyperkalemia; I48.2 Chronic atrial fibrillation; G70.9 Myoneural disorder, unspecified; Z66 Do not resuscitate; Z51.5 Encounter for palliative care; J96.01 Acute respiratory failure with hypoxia; N18.9 Chronic kidney disease, unspecified; J45.909 Unspecified asthma, uncomplicated; F41.1 Generalized anxiety disorder; E66.9 Obesity, unspecified; I35.1 Nonrheumatic aortic (valve) insufficiency; Z88.5 Allergy status to narcotic agent; Z79.899 Other long term (current) drug therapy
CPT/HCPCS: 31500; 36415; 36416; 70450; 71045; 74018; 80048; 80053; 80162; 80202; 81003; 81015; 82140; 82805; 83690; 83735; 83880; 84100; 84436; 84484; 85007; 85025; 85027; 87086; 93005; 93306; 94002; 94003; 94640; 94660; 95816; 95819; 96365; 96374; 96376; A4216; C9113; G8978-GP-CN; G8979-GP-CM; J0696; J1120; J1160; J1644; J1650; J1940; J2060; J2704; J2920; J3010; J3370; J3480; J7050; J7620